=== PATIENT | female | born 1980 | race Caucasian/White ===

== ENCOUNTER 2016-08-24 20:58 | Emergency (ER) | payer OTHER ==
[2016-08-24 21:11] VITALS: TEMP 97.2
[2016-08-24] MEDS ORDERED: LORazepam 1 MG TAB PO STA (21:51)
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
[2016-08-24 22:24] VITALS: BP 145/75; PULSE 86; RESP 18
== END 2016-08-24 22:23 | disposition home or self-care (01) ==
LOC: EC 20:58
DX: S00.93XA Contusion of unspecified part of head, initial encounter (principal); F41.9 Anxiety disorder, unspecified; J45.909 Unspecified asthma, uncomplicated; F31.9 Bipolar disorder, unspecified; F43.10 Post-traumatic stress disorder, unspecified; F17.200 Nicotine dependence, unspecified, uncomplicated; Z79.899 Other long term (current) drug therapy; Z88.5 Allergy status to narcotic agent; W19.XXXA Unspecified fall, initial encounter; Y92.009 Unspecified place in unspecified non-institutional (private) residence as the place of occurrence of the external cause
CPT/HCPCS: 99284

== ENCOUNTER 2017-01-08 21:27 | Emergency (ER) | payer OTHER ==
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
[2017-01-08 22:48] VITALS: BP 134/86; PULSE 97; RESP 18; TEMP 99
== END 2017-01-08 22:46 | disposition home or self-care (01) ==
LOC: EC 21:27
DX: T76.21XA Adult sexual abuse, suspected, initial encounter (principal); F31.9 Bipolar disorder, unspecified; F41.9 Anxiety disorder, unspecified; F17.200 Nicotine dependence, unspecified, uncomplicated; Z79.899 Other long term (current) drug therapy; Z88.5 Allergy status to narcotic agent; Y92.89 Other specified places as the place of occurrence of the external cause
CPT/HCPCS: 99285

== ENCOUNTER 2017-07-16 14:07 | Emergency (ER) | payer OTHER ==
[2017-07-16 14:32] VITALS: BP 123/84; PULSE 83; RESP 17; TEMP 98.4
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
[2017-07-16] MEDS ORDERED: HYDROcodone/APAP 5-325MG 1 EACH TAB PO STA (15:35)
== END 2017-07-16 15:46 | disposition home or self-care (01) ==
LOC: EC 14:07
DX: S52.121A Displaced fracture of head of right radius, initial encounter for closed fracture (principal); F31.9 Bipolar disorder, unspecified; F41.9 Anxiety disorder, unspecified; F43.10 Post-traumatic stress disorder, unspecified; F17.200 Nicotine dependence, unspecified, uncomplicated; Z79.899 Other long term (current) drug therapy; Z88.5 Allergy status to narcotic agent; V04 Pedestrian injured in collision with heavy transport vehicle or bus; Y92.410 Unspecified street and highway as the place of occurrence of the external cause
CPT/HCPCS: 29105; 99283

== ENCOUNTER 2017-12-07 18:32 | Emergency (ER) | payer OTHER ==
[2017-12-07 18:41] VITALS: BP 148/78; PULSE 88; RESP 20; TEMP 97.8
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
--- NOTE | 2017-12-07 19:56 | XR ---
Right wrist HISTORY: Trauma and pain 4 views of the right wrist Bone mineralization, joint spaces and alignment are maintained. IMPRESSION: No acute fracture or dislocation.
--- NOTE | 2017-12-07 19:57 | XR ---
Right hand HISTORY: Trauma and pain 3 views of the right hand Bone mineralization, joint spaces and alignment are maintained. IMPRESSION: No fracture or dislocation.
--- NOTE | 2017-12-07 19:58 | XR ---
Right elbow HISTORY: Trauma and pain 3 views of the right elbow Radial head fracture is noted with minimal displacement. No dislocation. There is an elbow joint effu ericka. IMPRESSION: Radial head fracture
[2017-12-07] MEDS ORDERED: traMADol 50 MG TAB PO STA (20:04)
== END 2017-12-07 20:30 | disposition home or self-care (01) ==
LOC: EC 18:32
DX: S52.121A Displaced fracture of head of right radius, initial encounter for closed fracture (principal); F31.9 Bipolar disorder, unspecified; F43.10 Post-traumatic stress disorder, unspecified; F41.9 Anxiety disorder, unspecified; F17.200 Nicotine dependence, unspecified, uncomplicated; Z88.5 Allergy status to narcotic agent; Z79.899 Other long term (current) drug therapy; W23.0XXA Caught, crushed, jammed, or pinched between moving objects, initial encounter; Y93.E9 Activity, other interior property and clothing maintenance; Y92.009 Unspecified place in unspecified non-institutional (private) residence as the place of occurrence of the external cause
CPT/HCPCS: 99283

== ENCOUNTER 2018-10-06 12:24 | Emergency (ER) | payer OTHER ==
[2018-10-06 13:16] VITALS: RESP 18; TEMP 98.1
[2018-10-06] MEDS ORDERED: HYDROcodone/APAP 5-325MG 1 EACH TAB PO STA (13:30)
--- NOTE | 2018-10-06 14:00 | XR ---
EXAMINATION TYPE: XR knee 4V RT DATE OF EXAM: 10/06/2018 CLINICAL HISTORY: pain TECHNIQUE: 4 views of the right knee are obtained. COMPARISON: None. FINDINGS: There is no acute fracture/dislocation. The tri-compartment joint spaces appear within no rmal limits. The overlying soft tissue appears unremarkable. IMPRESSION: There is no acute fracture or dislocation.ICD 10 NO FRACTURE, INITIAL EVALUATION
--- NOTE | 2018-10-06 14:00 | XR ---
EXAMINATION TYPE: XR foot complete RT DATE OF EXAM: 10/06/2018 CLINICAL HISTORY: pain TECHNIQUE: Frontal, lateral and oblique images of the right foot are obtained. COMPARISON: None. FINDINGS: There is no acute fracture/dislocation evident. The joint spaces appear within normal adan its. The overlying soft tissue appears unremarkable. IMPRESSION: There is no acute fracture or dislocation. ICD 10 NO FRACTURE, INITIAL EVALUATION
--- NOTE | 2018-10-06 14:27 | ED ---
Lower Extremity Injury HPI - General Chief Complaint: Extremity Injury, Lower Stated Complaint: Fall, leg and foot injury Time Seen by Provider: 10/06/18 13:11 Source: patient, RN notes reviewed Mode of arrival: wheelchair Limitations: no limitations - History of Present Illness Initial Comments: This a 38-year-old female presents emergency Department chief complaint trip and fall. Patient states that her sandal caught on concrete and she fell forward onto her knee, right foot region. Patient complains of right foot pain and right knee pain. She does have multiple abrasions so she states her tetanus is up-to-date. She denies any head injury no loss conscious. Patient states she had a prior foot fracture. Patient states it's orals and region. - Related Data Home Medications Medication Instructions Recorded Confirmed DULoxetine HCL [Cymbalta] 60 mg PO DAILY 08/23/15 10/06/18 Allergies Allergy/AdvReac Type Severity Reaction Status Date / Time codeine AdvReac Nausea & Verified 10/06/18 14:14 Vomiting Review of Systems ROS Statement: Those systems with pertinent positive or pertinent negative responses have been documented in the HPI. ROS Other: All systems not noted in ROS Statement are negative. Past Medical History Past Medical History: Asthma Additional Past Medical History / Comment(s): OB history: 3 Vaginal deliveries, 2 voluntary terminations. History of Any Multi-Drug Resistant Organisms: None Reported Past Surgical History: Tubal Ligation Additional Past Surgical History / Comment(s): colonoscopy. corrective eye surgery as child. D&C x2 Past Psychological History: Anxiety, Bipolar, Depression, PTSD Smoking Status: Current every day smoker Past Alcohol Use History: Occasional Past Drug Use History: None Reported General Exam Limitations: no limitations General appearance: alert, in no apparent distress Eye exam: Present: normal appearance, PERRL, EOMI. Absent: scleral icterus, conjunctival injection, periorbital swelling ENT exam: Present: normal exam, normal oropharynx, mucous membranes moist Neck exam: Present: normal inspection, full ROM. Absent: tenderness, meningismus, lymphadenopathy Respiratory exam: Present: normal lung sounds bilaterally. Absent: respiratory distress, wheezes, rales, rhonchi, stridor Cardiovascular Exam: Present: regular rate, normal rhythm, normal heart sounds. Absent: systolic murmur, diastolic murmur, rubs, gallop, clicks Extremities exam: Present: other (Right knee there is abrasion on anterior surface, test with palpation of the patella, full range of motion neurovascular intact right hip full range of motion nontender, right foot tenderness over the fifth digit. There are slight abrasions no ankle tenderness. Left knee small abrasion full range of motion extremity exam otherwise unremarkable) Back exam: Present: full ROM. Absent: tenderness, paraspinal tenderness, vertebral tenderness Neurological exam: Present: alert, oriented X3, CN II-XII intact Course Vital Signs 10/06/18 13:11 Temperature 98.1 F Pulse Rate 77 Respiratory 18 Rate Blood Pressure 122/89 O2 Sat by Pulse 98 Oximetry Medical Decision Making - Medical Decision Making 38-year-old female presented for a fall, right and left leg injury. X-rays obtained no acute fracture. There is evidence of OLD fracture and which she knew about. Disposition Clinical Impression: Fall, Abrasion of knee, right, Contusion of right foot, Contusion of right knee Disposition: HOME SELF-CARE Condition: Stable Instructions (If sedation given, give patient instructions): Knee Pain (ED), Abrasion (ED) Additional Instructions: Please return to the Emergency Department if symptoms worsen or any other concerns. Is patient prescribed a controlled substance at d/c from ED?: No Referrals: Deonte Espana DO [Primary Care Provider] - 1-2 days
[2018-10-06] MEDS ORDERED: traMADol 50 MG STARTER PACK 3 TAB BTL PO STA (14:29)
[2018-10-06 14:56] VITALS: BP 123/71; PULSE 82
== END 2018-10-06 15:00 | disposition home or self-care (01) ==
LOC: EC 12:24
DX: S80.01XA Contusion of right knee, initial encounter (principal); S90.31XA Contusion of right foot, initial encounter; F41.9 Anxiety disorder, unspecified; F31.9 Bipolar disorder, unspecified; F17.200 Nicotine dependence, unspecified, uncomplicated; Z79.899 Other long term (current) drug therapy; Z88.5 Allergy status to narcotic agent; W01.0XXA Fall on same level from slipping, tripping and stumbling without subsequent striking against object, initial encounter; Y93.01 Activity, walking, marching and hiking
CPT/HCPCS: 99283

== ENCOUNTER 2018-10-25 17:37 | Emergency (ER) | payer OTHER ==
[2018-10-25 18:05] VITALS: RESP 18
[2018-10-25] MEDS ORDERED: KETOROLAC 60 MG/2 ML VIAL IM STA (18:29)
[2018-10-25] MEDS ORDERED: HYDROcodone/APAP 5-325MG 1 EACH TAB PO STA (18:38)
--- NOTE | 2018-10-25 18:38 | XR ---
PROCEDURE: XR cervical spine comp - 5V DATE AND TIME: 10/25/2018 6:27 PM CLINICAL INDICATION: PHH; pain TECHNIQUE: Department protocol COMPARISON: None FINDINGS: There is no fracture or malalignment. The soft tissues are unremarkable. IMPRESSION: NO ACUTE PROCESS.
--- NOTE | 2018-10-25 18:39 | XR ---
PROCEDURE: XR shoulder complete RT - 3V DATE AND TIME: 10/25/2018 6:27 PM CLINICAL INDICATION: PHH; Pain TECHNIQUE: Department protocol COMPARISON: None FINDINGS: There is no fracture or malalignment. The soft tissues are unremarkable. IMPRESSION: NO ACUTE PROCESS.
--- NOTE | 2018-10-25 18:40 | XR ---
PROCEDURE: XR scapula RT - 2V DATE AND TIME: 10/25/2018 6:27 PM CLINICAL INDICATION: PHH; Pain TECHNIQUE: Department protocol COMPARISON: None FINDINGS: There is no fracture or malalignment. The soft tissues are unremarkable. IMPRESSION: NO ACUTE PROCESS.
--- NOTE | 2018-10-25 19:04 | ED ---
General Adult HPI - General Chief complaint: Extremity Injury, Upper Stated complaint: Arm injury Time Seen by Provider: 10/25/18 17:46 Source: patient, family, RN notes reviewed, old records reviewed Mode of arrival: ambulatory Limitations: no limitations - History of Present Illness Initial comments: 38-year-old female patient with no pertinent past multiple history presents to ED with right shoulder injury. Patient reports that she was unpacking boxes from a closet when a box fell and hit her in the right shoulder. Patient also reports that a framed re fell and hit her in her posterior right scapular region. This picture also grazed her posterior cervical spine region. She denies any trauma to head. Patient primary complaint is shoulder pain.. Patient states that she is not . Patient denies any other complaints. Systemic: Pt denies fatigue, myalgia, fever/chills, rash. Pt denies weakness, night sweats, weight loss. Neuro: Pt denies headache, visual disturbances, syncope or pre-syncope. HEENT: Pt denies ocular discharge or irritation, otalgia, rhinorrhea, pharyngitis or notable lymphadenopathy. Cardiopulmonary: Pt denies chest pain, SOB, heart palpitations, dyspnea on exertion. Abdominal/GI: Pt denies abdominal pain, n/v/d. : Pt denies dysuria, burning w/ urination, frequency/urgency. Denies new onset urinary or bowel incontinence. MSK: Pt denies myalgia, loss of strength or function in extremities. Neuro: Pt denies new onset weakness, paresthesias. - Related Data Home Medications Medication Instructions Recorded Confirmed Topiramate [Topamax] 25 mg PO BID 10/25/18 10/25/18 Allergies Allergy/AdvReac Type Severity Reaction Status Date / Time codeine AdvReac Nausea & Verified 10/06/18 14:14 Vomiting Review of Systems ROS Statement: Those systems with pertinent positive or pertinent negative responses have been documented in the HPI. ROS Other: All systems not noted in ROS Statement are negative. Past Medical History Past Medical History: Asthma Additional Past Medical History / Comment(s): OB history: 3 Vaginal deliveries, 2 voluntary terminations. History of Any Multi-Drug Resistant Organisms: None Reported Past Surgical History: Tubal Ligation Additional Past Surgical History / Comment(s): colonoscopy. corrective eye surgery as child. D&C x2 Past Psychological History: Anxiety, Bipolar, Depression, PTSD Smoking Status: Current every day smoker Past Alcohol Use History: Occasional Past Drug Use History: None Reported General Exam - General Exam Comments Initial Comments: Constitutional: NAD, AOX3, Pt has pleasant affect. HEENT: NC/AT, trachea midline, neck supple, no lymphadenopathy. Posterior pharynx non erythematous, without exudates. External ears appear normal, without discharge. Mucous membranes moist. Eyes PERRLA, EOM intact. There is no scleral icterus. No pallor noted. Cardiopulmonary: RRR, no murmurs, rubs or gallops, no JVD noted. Lungs CTAB in anterior and posterior mcgregor. No peripheral edema. Abdominal exam: Abdomen soft and non-distended. Abdomen non-tender to palpation in all 4 quadrants. Bowel sounds active in LLQ. No hepatosplenomegaly. No ecchymosis Neuro: CN II-XII intact. No nuchal rigidity. MSK: Right shoulder mildly tender to palpation. Active motion limited secondary to pain. No ecchymoses. No deformity. Mild amount of cervical spinal tenderness at the location of trauma no other area tenderness. Full active range of motion. No posterior calf tenderness bilaterally, homans sign negative bilaterally. Posterior tibialis and radial pulse +2 bilaterally. Sensation intact in upper and lower extremities. Pt ambulatory without difficulty. Limitations: no limitations Course Vital Signs 10/25/18 17:46 Temperature 97.7 F Pulse Rate 78 Respiratory 18 Rate Blood Pressure 155/91 O2 Sat by Pulse 99 Oximetry Medical Decision Making - Medical Decision Making 38-year-old female patient with no pertinent past multiple history presents to ED with right shoulder injury. Patient reports that she was unpacking boxes from a closet when a box fell and hit her in the right shoulder. Patient also reports that a framed re fell and hit her in her posterior right scapular region. This picture also grazed her posterior cervical spine region. She denies any trauma to head. Patient primary complaint is shoulder pain.. Patient states that she is not . Patient denies any other complaints. Pt VSS, afebrile. Physical exam displayed: Right shoulder mildly tender to palpation. Active motion limited secondary to pain. No ecchymoses. No deformity. Mild amount of cervical spinal tenderness at the location of trauma no other area tenderness. Full active range of motion. Plain film of shoulder, scapula, cervical spine not displaying acute process. Patient likely suffered a shoulder sprain. Patient will be given orthopedic follow-up. Patient will be advised to use Tylenol and Motrin for pain. Patient return to ER if conditions worsen anyway. Case d iscussed with Dr. Alonso. Disposition Clinical Impression: Shoulder sprain Disposition: HOME SELF-CARE Condition: Stable Instructions (If sedation given, give patient instructions): Shoulder Sprain (ED) Additional Instructions: Patient to adhere to previously discussed treatment plan and will take medication(s) as directed. Patient to follow up with PCP in 1-2 days. Patient to return to ED if symptoms do not improve. Use tylenol and motrin for pain / inflammation. Follow up with orthopedic surgeon in 1-2 days. Is patient prescribed a controlled substance at d/c from ED?: No Referrals: Deonte Espana DO [Primary Care Provider] - 1-2 days Ehsan Clark MD [STAFF PHYSICIAN] - 1-2 days
[2018-10-25 19:14] VITALS: BP 128/89; PULSE 89; TEMP 97.9
== END 2018-10-25 19:14 | disposition home or self-care (01) ==
LOC: EC 17:37
DX: S43.401A Unspecified sprain of right shoulder joint, initial encounter (principal); F17.200 Nicotine dependence, unspecified, uncomplicated; Z88.5 Allergy status to narcotic agent; Z79.899 Other long term (current) drug therapy; Z53.8 Procedure and treatment not carried out for other reasons; W20.8XXA Other cause of strike by thrown, projected or falling object, initial encounter; Y93.89 Activity, other specified
CPT/HCPCS: 72050; 99284

== ENCOUNTER 2019-01-28 12:34 | Emergency (ER) | payer BC, OTHER ==
[2019-01-28 12:42] VITALS: RESP 18
[2019-01-28] MEDS ORDERED: SODIUM CHLORIDE 0.9% 1,000 ML IV STA (12:46)
[2019-01-28] MEDS ORDERED: ONDANSETRON 4 MG/2 ML VIAL IVP STA (12:46)
[2019-01-28] MEDS ORDERED: MORPHINE SULFATE 4 MG/ML SYRINGE IV STA (12:57)
[2019-01-28 13:20] LABS: Basophils % (A) 1 %; Eosinophils # (A) 0.1 k/uL (0-0.7); Eosinophils % (A) 2 %; HCT 40.4 % (34.0-46.0); HGB 13.4 gm/dL (11.4-16.0); Lymphocytes # (A) 1.8 k/uL (1.0-4.8); Lymphocytes % (A) 34 %; MCH 30.2 pg (25.0-35.0); MCHC 33.3 g/dL (31.0-37.0); MCV 90.7 fL (80.0-100.0); Mean Platelet Volume 7.9; Monocytes # (A) 0.2 k/uL (0-1.0); Monocytes % (A) 5 %; Neutrophils % (A) 57 %; Platelet Count 163 k/uL (150-450); RBC 4.45 m/uL (3.80-5.40); WBC 5.2 k/uL (3.8-10.6)
[2019-01-28 13:21] LABS: Appearance,Urine Clear (Clear); Bilirubin,Urine Negative (Negative); Blood,Urine Negative (Negative); Color,Urine Colorless; Glucose,Urine (UA) Negative (Negative); Ketones,Urine Negative (Negative); Leukocyte Esterase,Urine Negative (Negative); Nitrite,Urine Negative (Negative); Protein,Urine Negative (Negative); Specific Gravity,Urine 1.001 (1.001-1.035); Urobilinogen,Urine <2.0 mg/dL (<2.0)
[2019-01-28 13:29] LABS: ALT 23 U/L (9-52); AST 19 U/L (14-36); African American GFR (CKD) >90 (>60 ml/min/1.73 sqM); Albumin 3.8 g/dL (3.5-5.0); Alkaline Phosphatase 74 U/L (38-126); Anion Gap 9 mmol/L; Blood Urea Nitrogen 8 mg/dL (7-17); Calcium 9.2 mg/dL (8.4-10.2); Carbon Dioxide 19 mmol/L (22-30); Chloride 109 mmol/L (98-107); Glucose 93 mg/dL (74-99); Lipase 37 U/L (23-300); Potassium 4.1 mmol/L (3.5-5.1); Sodium 137 mmol/L (137-145); Total Bilirubin 0.3 mg/dL (0.2-1.3); Total Protein 6.7 g/dL (6.3-8.2)
--- NOTE | 2019-01-28 14:33 | US ---
EXAMINATION TYPE: US gallbladder DATE OF EXAM: 01/28/2019 COMPARISON: NONE CLINICAL HISTORY: Pain. EXAM MEASUREMENTS: Liver Length: 14.0 cm Gallbladder Wall: 0.2 cm CBD: 0.4 cm Right Kidney: 10.7 x 3.9 x 4.9 cm Pancreas: Tail obscured by overlying bowel gas, duct measured at 2mm Liver: wnl Gallbladder: wnl Evidence for sonographic Clark's sign: no CBD: wnl Right Kidney: wnl IMPRESSION: Negative exam. No gallstones or dilated ducts.
[2019-01-28] MEDS ORDERED: PANTOPRAZOLE 40 MG/10 ML VIAL IVP STA (14:39)
--- NOTE | 2019-01-28 16:04 | CT ---
EXAMINATION TYPE: CT abdomen pelvis w con DATE OF EXAM: 01/28/2019 COMPARISON: 11/08/2014 HISTORY: Nausea, vomiting and diarrhea with right lower quadrant pain. CT DLP: 1123.9 mGycm Automated exposure control for dose reduction was used. TECHNIQUE: Helical acquisition of images was performed from the lung bases through the pelvis. CONTRAST: Performed without Oral Contrast and with IV Contrast, patient injected with 100 mL of Isovue 300. FINDINGS: Lung bases are clear. There is no pleural effusion. Heart size is normal. There is no pericardial eff usion. Liver spleen pancreas gallbladder appear normal. Bile ducts are not dilated. There is no adrenal mass . Kidneys show satisfactory contrast opacification. There is no hydronephrosis. There is no retroperi toneal adenopathy. There is no inguinal hernia. There is no free fluid in the pelvis. Bladder distends smoothly. There i s no evidence of a pelvic mass. Uterus is retroverted. Lumbar spine is intact. Bony pelvis is intact. I see no bony destructive process. The appendix appears normal. There is no mesenteric edema. There is no ascites or free air. IMPRESSION: NEGATIVE CT SCAN ABDOMEN AND PELVIS. NO ADVERSE CHANGE COMPARED TO OLD EXAM. NORMAL APPENDIX.
--- NOTE | 2019-01-28 16:10 | ED ---
General Adult HPI - General Chief complaint: Abdominal Pain Stated complaint: RT side flank pain Time Seen by Provider: 01/28/19 12:46 Source: patient, RN notes reviewed, old records reviewed Mode of arrival: ambulatory Limitations: no limitations - History of Present Illness Initial comments: 38-year-old female patient past history of tubal ligation presents to ED with chief complaint of right upper quadrant, epigastric abdominal pain. Patient works as been ongoing for 5 days. Patient reports associated nausea and vomiting. Patient denies any other complaints. Denies any chest pain shortness of breath. Systemic: Pt denies fatigue, fever/chills, rash. Pt denies weakness, night sweats, weight loss. Neuro: Pt denies headache, visual disturbances, syncope or pre-syncope. HEENT: Pt denies ocular discharge or irritation, otalgia, rhinorrhea, pha ryngitis or notable lymphadenopathy. Cardiopulmonary: Pt denies chest pain, SOB, heart palpitations, dyspnea on exertion. : Pt denies dysuria, burning w/ urination, frequency/urgency. Denies new onset urinary or bowel incontinence. MSK: Pt denies myalgia, loss of strength or function in extremities. Neuro: Pt denies new onset weakness, paresthesias. - Related Data Home Medications Medication Instructions Recorded Confirmed Topiramate [Topamax] 25 mg PO BID 10/25/18 10/25/18 Previous Rx's Medication Instructions Recorded Pantoprazole Sodium [Protonix] 20 mg PO Q24HR 7 Days #7 tablet. 01/28/19 Allergies Allergy/AdvReac Type Severity Reaction Status Date / Time codeine AdvReac Nausea & Verified 01/28/19 12:40 Vomiting Review of Systems ROS Statement: Those systems with pertinent positive or pertinent negative responses have been documented in the HPI. ROS Other: All systems not noted in ROS Statement are negative. Past Medical History Past Medical History: Asthma Additional Past Medical History / Comment(s): OB history: 3 Vaginal deliveries, 2 voluntary terminations. History of Any Multi-Drug Resistant Organisms: None Reported Past Surgical History: Tubal Ligation Additional Past Surgical History / Comment(s): colonoscopy. corrective eye surgery as child. D&C x2 Past Psychological History: Anxiety, Bipolar, Depression, PTSD Smoking Status: Current every day smoker Past Alcohol Use History: Occasional Past Drug Use History: None Reported General Exam - General Exam Comments Initial Comments: Constitutional: NAD, AOX3, Pt has pleasant affect. HEENT: NC/AT, trachea midline, neck supple, no lymphadenopathy. Posterior pharynx non erythematous, without exudates. External ears appear normal, without discharge. Mucous membranes moist. Eyes PERRLA, EOM intact. There is no scleral icterus. No pallor noted. Cardiopulmonary: RRR, no murmurs, rubs or gallops, no JVD noted. Lungs CTAB in anterior and posterior mcgregor. No peripheral edema. Abdominal exam: Abdomen soft and non-distended. Abdomen mildly tender to palpation and epigastric, right upper quadrant region. Clark sign negative. No other areas of abdominal tenderness, no guarding no JVD.. Bowel sounds active in LLQ. No hepatosplenomegaly. No ecchymosis Neuro: CN II-XII grossly intact. No nuchal rigidity. No raccon eyes, no olivares sign, no hemotympanum. No cervical spinal tenderness. MSK: No posterior calf tenderness bilaterally, homans sign negative bilaterally. Posterior tibialis and radial pulse +2 bilaterally. Sensation intact in upper and lower extremities. Full active ROM in upper and lower extremities, 5/5 stregnth. Limitations: no limitations Course Vital Signs 01/28/19 01/28/19 12:40 15:04 Temperature 98.9 F Pulse Rate 95 70 Respiratory 18 18 Rate Blood Pressure 129/88 128/89 O2 Sat by Pulse 97 97 Oximetry Medical Decision Making - Medical Decision Making 38-year-old female patient past history of tubal ligation presents to ED with chief complaint of right upper quadrant, epigastric abdominal pain. Patient works as been ongoing for 5 days. Patient reports associated nausea and vomiting. Patient denies any other complaints. Denies any chest pain shortness of breath. Pt VSS, afebrile. Physical exam displayed: Abdomen mildly tender to palpation and epigastric, right upper quadrant region. Clark sign negative. No other areas of abdominal tenderness, no guarding no JVD.. Laboratory investigations revealed non-impressive CBC, CMP, UA. Lactic acid 0.6. Ultrasound gallbladder, CTM pelvis did not display acute process. Patient improved with Protonix. Patient will be discharged with Protonix. Patient to follow up with primary care provider and GI consult. Will turn your condition worsens. Case discussed with Dr. Molina. - Lab Data Result diagrams: 01/28/19 13:10 01/28/19 13:10 Lab Results 01/28/19 01/28/19 01/28/19 Range/Units 13:10 13:10 13:10 WBC 5.2 (3.8-10.6) k/uL RBC 4.45 (3.80-5.40) m/uL Hgb 13.4 (11.4-16.0) gm/dL Hct 40.4 (34.0-46.0) % MCV 90.7 (80.0-100.0) fL MCH 30.2 (25.0-35.0) pg MCHC 33.3 (31.0-37.0) g/dL RDW 13.0 (11.5-15.5) % Plt Count 163 (150-450) k/uL Neutrophils % 57 % Lymphocytes % 34 % Monocytes % 5 % Eosinophils % 2 % Basophils % 1 % Neutrophils # 3.0 (1.3-7.7) k/uL Lymphocytes # 1.8 (1.0-4.8) k/uL Monocytes # 0.2 (0-1.0) k/uL Eosinophils # 0.1 (0-0.7) k/uL Basophils # 0.0 (0-0.2) k/uL Sodium 137 (137-145) mmol/L Potassium 4.1 (3.5-5.1) mmol/L Chloride 109 H (98-107) mmol/L Carbon Dioxide 19 L (22-30) mmol/L Anion Gap 9 mmol/L BUN 8 (7-17) mg/dL Creatinine 0.60 (0.52-1.04) mg/dL Est GFR (CKD-EPI)AfAm >90 (>60 ml/min/1.73 sqM) Est GFR (CKD-EPI)NonAf >90 (>60 ml/min/1.73 sqM) Glucose 93 (74-99) mg/dL Plasma Lactic Acid Robson (0.7-2.0) mmol/L Calcium 9.2 (8.4-10.2) mg/dL Total Bilirubin 0.3 (0.2-1.3) mg/dL AST 19 (14-36) U/L ALT 23 (9-52) U/L Alkaline Phosphatase 74 (38-126) U/L Total Protein 6.7 (6.3-8.2) g/dL Albumin 3.8 (3.5-5.0) g/dL Lipase 37 (23-300) U/L Urine Color Urine Appearance (Clear) Urine pH (5.0-8.0) Ur Specific [place] (1.001-1.035) Urine Protein (Negative) Urine Glucose (UA) (Negative) Urine Ketones (Negative) Urine Blood (Negative) Urine Nitrite (Negative) Urine Bilirubin (Negative) Urine Urobilinogen (<2.0) mg/dL Ur Leukocyte Esterase (Negative) Urine HCG, Qual Not Detected (Not Detectd) 01/28/19 01/28/19 Range/Units 13:10 14:32 WBC (3.8-10.6) k/uL RBC (3.80-5.40) m/uL Hgb (11.4-16.0) gm/dL Hct (34.0-46.0) % MCV (80.0-100.0) fL MCH (25.0-35.0) pg MCHC (31.0-37.0) g/dL RDW (11.5-15.5) % Plt Count (150-450) k/uL Neutrophils % % Lymphocytes % % Monocytes % % Eosinophils % % Basophils % % Neutrophils # (1.3-7.7) k/uL Lymphocytes # (1.0-4.8) k/uL Monocytes # (0-1.0) k/uL Eosinophils # (0-0.7) k/uL Basophils # (0-0.2) k/uL Sodium (137-145) mmol/L Potassium (3.5-5.1) mmol/L Chloride (98-107) mmol/L Carbon Dioxide (22-30) mmol/L Anion Gap mmol/L BUN (7-17) mg/dL Creatinine (0.52-1.04) mg/dL Est GFR (CKD-EPI)AfAm (>60 ml/min/1.73 sqM) Est GFR (CKD-EPI)NonAf (>60 ml/min/1.73 sqM) Glucose (74-99) mg/dL Plasma Lactic Acid Robson 0.6 L (0.7-2.0) mmol/L Calcium (8.4-10.2) mg/dL Total Bilirubin (0.2-1.3) mg/dL AST (14-36) U/L ALT (9-52) U/L Alkaline Phosphatase (38-126) U/L Total Protein (6.3-8.2) g/dL Albumin (3.5-5.0) g/dL Lipase (23-300) U/L Urine Color Colorless Urine Appearance Clear (Clear) Urine pH 7.0 (5.0-8.0) Ur Specific [place] 1.001 (1.001-1.035) Urine Protein Negative (Negative) Urine Glucose (UA) Negative (Negative) Urine Ketones Negative (Negative) Urine Blood Negative (Negative) Urine Nitrite Negative (Negative) Urine Bilirubin Negative (Negative) Urine Urobilinogen <2.0 (<2.0) mg/dL Ur Leukocyte Esterase Negative (Negative) Urine HCG, Qual (Not Detectd) Disposition Clinical Impression: Gastritis, Abdominal pain Disposition: HOME SELF-CARE Condition: Stable Instructions (If sedation given, give patient instructions): Abdominal Pain (ED) Additional Instructions: Patient to adhere to previously discussed treatment plan and will take medication(s) as directed. Patient to follow up with PCP in 1-2 days. Patient to return to ED if symptoms do not improve. Follow-up with primary care provider and GI consult 1-2 days. Return to ER if condition worsens. Prescriptions: Pantoprazole Sodium [Protonix] 20 mg PO Q24HR 7 Days #7 tablet.dr Is patient prescribed a controlled substance at d/c from ED?: No Referrals: Indira Angelo MD [Primary Care Provider] - 1-2 days Addison Carty MD [STAFF PHYSICIAN] - 1-2 days
[2019-01-28 16:31] VITALS: BP 112/78; PULSE 65; TEMP 98.4
== END 2019-01-28 16:30 | disposition home or self-care (01) ==
LOC: EC 12:34
DX: K29.70 Gastritis, unspecified, without bleeding (principal); F17.200 Nicotine dependence, unspecified, uncomplicated; Z79.899 Other long term (current) drug therapy; Z88.5 Allergy status to narcotic agent; Z98.51 Tubal ligation status
CPT/HCPCS: 36415; 80053; 83605; 83690; 85025; 81003; 81025; 76705; 74177; 99284; 96374; 96375 ×2; 96361 ×2; J2270; J2405; C9113; Q9967

== ENCOUNTER 2019-04-03 08:33 | Emergency (ER) | payer OTHER ==
[2019-04-03] MEDS ORDERED: KETOROLAC 30 MG/ML 1 ML VIAL IVP STA (09:12)
[2019-04-03] MEDS ORDERED: ONDANSETRON 4 MG/2 ML VIAL IVP STA (09:12)
[2019-04-03] MEDS ORDERED: SODIUM CHLORIDE 0.9% 1,000 ML IV STA ×2 (09:12)
[2019-04-03] MEDS ORDERED: MORPHINE SULFATE 4 MG/ML SYRINGE IV STA (09:12)
--- NOTE | 2019-04-03 09:20 | ED ---
Back Pain HPI - General Chief Complaint: Back Pain/Injury Stated Complaint: low back pain, nausea Time Seen by Provider: 04/03/19 08:41 Source: patient, RN notes reviewed, old records reviewed Limitations: no limitations - History of Present Illness Initial Comments: Patient is a 38-year-old female presents for a sore today with chief complaint of right-sided lower back pain that started on the right approximate 5 days ago. Patient reports that the pain seems to be progressively worse now radiates towards the front of her abdomen. She reports pain draining towards the left side of her back. Patient reports that she initially thought this was related to a back spasm and not seems deeper than just muscle pain. Patient states that she has had episodes of nausea but no specific vomiting. She reports she's had normal stools. She states that she feels that she has to force herself to urinate but denies any bloody urine. - Related Data Home Medications Medication Instructions Recorded Confirmed Acetaminophen [Tylenol Arthritis] 650 mg PO Q12H PRN 04/03/19 04/03/19 Ibuprofen [Motrin] 800 mg PO Q6H PRN 04/03/19 04/03/19 Previous Rx's Medication Instructions Recorded Nitrofurantoin Monohyd/M-Cryst 100 mg PO Q12HR #14 cap 04/03/19 [Macrobid] Allergies Allergy/AdvReac Type Severity Reaction Status Date / Time codeine AdvReac Nausea & Verified 04/03/19 08:54 Vomiting Review of Systems ROS Statement: Those systems with pertinent positive or pertinent negative responses have been documented in the HPI. ROS Other: All systems not noted in ROS Statement are negative. Past Medical History Past Medical History: Asthma Additional Past Medical History / Comment(s): OB history: 3 Vaginal deliveries, 2 voluntary terminations. History of Any Multi-Drug Resistant Organisms: None Reported Past Surgical History: Tubal Ligation Additional Past Surgical History / Comment(s): colonoscopy. corrective eye surgery as child. D&C x2 Past Psychological History: Anxiety, Bipolar, Depression, PTSD Smoking Status: Current every day smoker Past Alcohol Use History: Occasional Past Drug Use History: None Reported General Exam Limitations: no limitations General appearance: alert, in no apparent distress Head exam: Present: atraumatic, normocephalic, normal inspection Eye exam: Present: normal appearance ENT exam: Present: normal exam Neck exam: Present: normal inspection. Absent: tenderness, meningismus, lymphadenopathy Respiratory exam: Present: normal lung sounds bilaterally. Absent: respiratory distress, wheezes, rales, rhonchi, stridor Cardiovascular Exam: Present: regular rate, normal rhythm, normal heart sounds. Absent: systolic murmur, diastolic murmur, rubs, gallop, clicks GI/Abdominal exam: Present: soft, normal bowel sounds. Absent: distended, tenderness, guarding, rebound, rigid Extremities exam: Present: normal inspection, full ROM, normal capillary refill. Absent: tenderness, pedal edema, joint swelling, calf tenderness Back exam: Present: normal inspection Neurological exam: Present: alert, oriented X3, CN II-XII intact Psychiatric exam: Present: normal affect, normal mood Course Vital Signs 04/03/19 08:35 Temperature 98.5 F Pulse Rate 105 H Respiratory 17 Rate Blood Pressure 128/70 O2 Sat by Pulse 97 Oximetry Medical Decision Making - Medical Decision Making Patient is a 38-year-old female presents pressure today was 2. right-sided back pain and lower abdominal pain onset for 5 days. She has no fever at this time. She did have an episode of vomiting. At this time patient's no some minimal tenderness, and did have some right-sided CVA tenderness. Lab work was reviewed. She did have a minor bacteria in her urine sample. Blood work was otherwise unremarkable. Due to the tenderness CT and pelvis was completed. There is evidence of a small 1.5 cm right ovarian cyst. Discussed unlikely significant source patient's pain. At this time we will culture the urine and put the Patient on a short course of antibiotics to cover for urinary tract infection complains some mild dysuria. I discussed the Patient can follow-up with her primary care doctor. She states she heard a scheduled appointment within the next 1-2 days. Discussed treatment any other further complaints to return for evaluation. On multiple questioning Patient denies any vaginal discharge or any concern for STDs. - Lab Data Result diagrams: 04/03/19 09:44 04/03/19 09:44 Lab Results 04/03/19 04/03/19 04/03/19 Range/Units 09:44 09:44 09:44 WBC 5.1 (3.8-10.6) k/uL RBC 4.72 (3.80-5.40) m/uL Hgb 14.8 (11.4-16.0) gm/dL Hct 43.2 (34.0-46.0) % MCV 91.6 (80.0-100.0) fL MCH 31.3 (25.0-35.0) pg MCHC 34.2 (31.0-37.0) g/dL RDW 14.9 (11.5-15.5) % Plt Count 172 (150-450) k/uL Neutrophils % 64 % Lymphocytes % 27 % Monocytes % 6 % Eosinophils % 2 % Basophils % 0 % Neutrophils # 3.2 (1.3-7.7) k/uL Lymphocytes # 1.3 (1.0-4.8) k/uL Monocytes # 0.3 (0-1.0) k/uL Eosinophils # 0.1 (0-0.7) k/uL Basophils # 0.0 (0-0.2) k/uL PT (9.0-12.0) sec INR (<1.2) APTT (22.0-30.0) sec Sodium 141 (137-145) mmol/L Potassium 4.5 (3.5-5.1) mmol/L Chloride 111 H (98-107) mmol/L Carbon Dioxide 22 (22-30) mmol/L Anion Gap 8 mmol/L BUN 10 (7-17) mg/dL Creatinine 0.63 (0.52-1.04) mg/dL Est GFR (CKD-EPI)AfAm >90 (>60 ml/min/1.73 sqM) Est GFR (CKD-EPI)NonAf >90 (>60 ml/min/1.73 sqM) Glucose 96 (74-99) mg/dL Plasma Lactic Acid Robson 0.8 (0.7-2.0) mmol/L Calcium 9.2 (8.4-10.2) mg/dL Total Bilirubin 0.3 (0.2-1.3) mg/dL AST 17 (14-36) U/L ALT 21 (9-52) U/L Alkaline Phosphatase 67 (38-126) U/L Total Protein 6.9 (6.3-8.2) g/dL Albumin 3.9 (3.5-5.0) g/dL Amylase 42 (30-110) U/L Lipase 52 (23-300) U/L Urine Color Urine Appearance (Clear) Urine pH (5.0-8.0) Ur Specific [place] (1.001-1.035) Urine Protein (Negative) Urine Glucose (UA) (Negative) Urine Ketones (Negative) Urine Blood (Negative) Urine Nitrite (Negative) Urine Bilirubin (Negative) Urine Urobilinogen (<2.0) mg/dL Ur Leukocyte Esterase (Negative) Urine RBC (0-5) /hpf Urine WBC (0-5) /hpf Ur Squamous Epith Cells (0-4) /hpf Urine Bacteria (None) /hpf Urine Mucus (None) /hpf 04/03/19 04/03/19 Range/Units 09:44 09:44 WBC (3.8-10.6) k/uL RBC (3.80-5.40) m/uL Hgb (11.4-16.0) gm/dL Hct (34.0-46.0) % MCV (80.0-100.0) fL MCH (25.0-35.0) pg MCHC (31.0-37.0) g/dL RDW (11.5-15.5) % Plt Count (150-450) k/uL Neutrophils % % Lymphocytes % % Monocytes % % Eosinophils % % Basophils % % Neutrophils # (1.3-7.7) k/uL Lymphocytes # (1.0-4.8) k/uL Monocytes # (0-1.0) k/uL Eosinophils # (0-0.7) k/uL Basophils # (0-0.2) k/uL PT 9.4 (9.0-12.0) sec INR 0.9 (<1.2) APTT 23.2 (22.0-30.0) sec Sodium (137-145) mmol/L Potassium (3.5-5.1) mmol/L Chloride (98-107) mmol/L Carbon Dioxide (22-30) mmol/L Anion Gap mmol/L BUN (7-17) mg/dL Creatinine (0.52-1.04) mg/dL Est GFR (CKD-EPI)AfAm (>60 ml/min/1.73 sqM) Est GFR (CKD-EPI)NonAf (>60 ml/min/1.73 sqM) Glucose (74-99) mg/dL Plasma Lactic Acid Robson (0.7-2.0) mmol/L Calcium (8.4-10.2) mg/dL Total Bilirubin (0.2-1.3) mg/dL AST (14-36) U/L ALT (9-52) U/L Alkaline Phosphatase (38-126) U/L Total Protein (6.3-8.2) g/dL Albumin (3.5-5.0) g/dL Amylase (30-110) U/L Lipase (23-300) U/L Urine Color Light Yellow Urine Appearance Cloudy H (Clear) Urine pH 5.5 (5.0-8.0) Ur Specific [place] 1.012 (1.001-1.035) Urine Protein Negative (Negative) Urine Glucose (UA) Negative (Negative) Urine Ketones Negative (Negative) Urine Blood Negative (Negative) Urine Nitrite Negative (Negative) Urine Bilirubin Negative (Negative) Urine Urobilinogen <2.0 (<2.0) mg/dL Ur Leukocyte Esterase Negative (Negative) Urine RBC <1 (0-5) /hpf Urine WBC 1 (0-5) /hpf Ur Squamous Epith Cells 11 H (0-4) /hpf Urine Bacteria Rare H (None) /hpf Urine Mucus Rare H (None) /hpf - Radiology Data Radiology results: report reviewed CT abdomen and pelvis was read and negative for any acute process there is a 1.5 cm right ovarian cyst. Disposition Clinical Impression: Right ovarian cyst, UTI (urinary tract infection) Disposition: HOME SELF-CARE Condition: Good Instructions (If sedation given, give patient instructions): Urinary Tract Infection in Women (DC) Additional Instructions: Please use medication as discussed. Please follow up with family doctor if symptoms have not improved over the next two days. Please return to the emergency room if your symptoms increase or worsen or for any other concerns. Prescriptions: Nitrofurantoin Monohyd/M-Cryst [Macrobid] 100 mg PO Q12HR #14 cap Is patient prescribed a controlled substance at d/c from ED?: No Referrals: Indira Angelo MD [Primary Care Provider] - 1-2 days Time of Disposition: 12:36
--- NOTE | 2019-04-03 09:58 | XR ---
EXAMINATION TYPE: XR chest 2V DATE OF EXAM: 04/03/2019 COMPARISON: 07/12/2013 HISTORY: 07/12/2013 TECHNIQUE: PA and lateral views FINDINGS: The cardiomediastinal silhouette, aorta, and pulmonary vasculature are within normal limits. Lungs an d pleural spaces are clear. Bilateral nipple bars. IMPRESSION: No acute cardiopulmonary process.
--- NOTE | 2019-04-03 10:00 | XR ---
KUB HISTORY: Abdominal pain Frontal KUB and 2 images correlated prior KUB 02/26/2014 There are metallic post through the regions of the nipples. Lung bases are clear. This tapers overlyi ng the right and left upper quadrants. No evident bowel obstruction or pneumoperitoneum. Intrauterine contraceptive device has been removed. Some minimal air-fluid levels without bowel distention. Bone mineralization is normal. IMPRESSION: Correlate for enteritis, ileus. Follow-up as indicated. Additional findings above.
[2019-04-03 10:14] LABS: Basophils % (A) 0 %; Eosinophils # (A) 0.1 k/uL (0-0.7); Eosinophils % (A) 2 %; HCT 43.2 % (34.0-46.0); HGB 14.8 gm/dL (11.4-16.0); Lymphocytes # (A) 1.3 k/uL (1.0-4.8); Lymphocytes % (A) 27 %; MCH 31.3 pg (25.0-35.0); MCHC 34.2 g/dL (31.0-37.0); MCV 91.6 fL (80.0-100.0); Mean Platelet Volume 8.5; Monocytes # (A) 0.3 k/uL (0-1.0); Monocytes % (A) 6 %; Neutrophils # (A) 3.2 k/uL (1.3-7.7); Neutrophils % (A) 64 %; Platelet Count 172 k/uL (150-450); RBC 4.72 m/uL (3.80-5.40); RDW 14.9 % (11.5-15.5); WBC 5.1 k/uL (3.8-10.6)
[2019-04-03 10:16] LABS: ALT 21 U/L (9-52); AST 17 U/L (14-36); African American GFR (CKD) >90 (>60 ml/min/1.73 sqM); Albumin 3.9 g/dL (3.5-5.0); Alkaline Phosphatase 67 U/L (38-126); Amylase 42 U/L (30-110); Anion Gap 8 mmol/L; Blood Urea Nitrogen 10 mg/dL (7-17); Calcium 9.2 mg/dL (8.4-10.2); Carbon Dioxide 22 mmol/L (22-30); Chloride 111 mmol/L (98-107); Glucose 96 mg/dL (74-99); INR 0.9 (<1.2); Partial Thromboplastin Time 23.2 sec (22.0-30.0); Potassium 4.5 mmol/L (3.5-5.1); Prothrombin Time 9.4 sec (9.0-12.0); Sodium 141 mmol/L (137-145); Total Bilirubin 0.3 mg/dL (0.2-1.3); Total Protein 6.9 g/dL (6.3-8.2)
[2019-04-03 10:21] LABS: Appearance,Urine Cloudy (Clear); Bacteria,Urine Rare /hpf; Bilirubin,Urine Negative (Negative); Blood,Urine Negative (Negative); Color,Urine Light Yellow; Glucose,Urine (UA) Negative (Negative); Ketones,Urine Negative (Negative); Leukocyte Esterase,Urine Negative (Negative); Mucus,Urine Rare /hpf; Nitrite,Urine Negative (Negative); PH, Urine 5.5 (5.0-8.0); Protein,Urine Negative (Negative); RBC,Urine <1 /hpf (0-5); Specific Gravity,Urine 1.012 (1.001-1.035); Squamous Epithelial Cell,Urine 11 /hpf (0-4); Urobilinogen,Urine <2.0 mg/dL (<2.0); WBC,Urine 1 /hpf (0-5)
[2019-04-03] MEDS ORDERED: HYDROmorphone 1 MG/ML 1 ML SYRINGE IVP STA (11:14)
--- NOTE | 2019-04-03 12:17 | CT ---
EXAMINATION TYPE: CT abdomen pelvis w con DATE OF EXAM: 04/03/2019 COMPARISON: 01/28/2019 INDICATION: right flank pain, nausea, dysuria DLP: 1444.1 mGycm, Automated exposure control for dose reduction was used. CONTRAST: 100 mL of Isovue 300. Study performed without Oral Contrast TECHNIQUE: Axial images were obtained from above the diaphragm to the pubic rami in the axial plane a t 5 mm thick sections. Reconstructed images are reviewed on the computer in the coronal plane. FINDINGS: Limited CT sections are obtained the lung bases. The lung bases are clear. CT ABDOMEN: Liver: Normal Spleen: Normal Pancreas: Normal Adrenal glands: The adrenal glands are normal. Gallbladder: Normal Kidneys: No masses are evident. No hydronephrosis is present. No cysts are present. Delayed images were obtained through the kidneys, which remain unremarkable. Aorta: Normal Inferior vena cava: Normal. CT PELVIS: Loops of bowel within the abdomen and pelvis are normal. There are loops of bowel which are incom pletely distended or lack oral contrast limiting their evaluation. Appendix: Normal as visualized. Urinary bladder: Normal. Genitourinary structures: Uterus is normal. There appear to be tubo-ovarian cysts on the right ovary with a transverse dimension of 1.5 cm each. Couple small follicles are on the left ovary. No signific ant free fluid is in the pelvis. Osseous structures: No suspicious lytic or sclerotic lesions. IMPRESSIONS: 1. 1.5 cm right ovarian cysts. 2. CT abdomen and pelvis otherwise unremarkable.
[2019-04-03] MEDS ORDERED: traMADol 50 MG STARTER PACK 3 TAB BTL PO STA (12:36)
[2019-04-03] MEDS ORDERED: NITROFURANTOIN MONOHYD/M-CRYST 100 MG CAP PO STA (12:36)
[2019-04-03 13:15] VITALS: BP 130/81; PULSE 74; RESP 18; TEMP 98
== END 2019-04-03 13:09 | disposition home or self-care (01) ==
LOC: EC 08:33
DX: N83.201 Unspecified ovarian cyst, right side (principal); N39.0 Urinary tract infection, site not specified; R11.2 Nausea with vomiting, unspecified; F17.200 Nicotine dependence, unspecified, uncomplicated; Z88.5 Allergy status to narcotic agent
CPT/HCPCS: 99284; 96374; 96375 ×3; 96361; 36415; 80053; 82150; 83605; 83690; 85025; 85610; 85730; 81001; 71046; 74018; 74177; J2270; J2405; J1885; J1170; Q9967

== ENCOUNTER 2019-05-05 12:46 | Emergency (ER) | payer OTHER ==
[2019-05-05 13:00] VITALS: BP 133/89; PULSE 78; RESP 18; TEMP 98.4
--- NOTE | 2019-05-05 14:32 | ED ---
Upper Extremity HPI - General Chief Complaint: Extremity Injury, Upper Stated Complaint: rt arm injury Time Seen by Provider: 05/05/19 14:04 Source: patient Mode of arrival: ambulatory Limitations: no limitations - History of Present Illness Initial Comments: Patient is a 38-year-old female presenting to the emergency department complaints of right wrist pain that happened last night. Patient states she got up in the middle night to use the restroom when she slipped getting out of bed and landed on her right hand, wrist. Patient states she has pain mostly in her right wrist that is also radiating up into her right forearm. Patient is able to bend her right elbow. Patient denies numbness and tingling into her hand. Patient denies any previous right wrist or right forearm fractures. Patient does have history of previous right elbow fractures, no surgeries. Patient denies any other injuries from this fall. Patient has no other complaints at this time. Upon arrival to ER, vital signs are stable. - Related Data Home Medications Medication Instructions Recorded Confirmed Acetaminophen [Tylenol Arthritis] 650 mg PO Q12H PRN 04/03/19 04/03/19 Ibuprofen [Motrin] 800 mg PO Q6H PRN 04/03/19 04/03/19 Previous Rx's Medication Instructions Recorded Nitrofurantoin Monohyd/M-Cryst 100 mg PO Q12HR #14 cap 04/03/19 [Macrobid] Allergies Allergy/AdvReac Type Severity Reaction Status Date / Time codeine AdvReac Nausea & Verified 04/03/19 08:54 Vomiting Review of Systems ROS Statement: Those systems with pertinent positive or pertinent negative responses have been documented in the HPI. ROS Other: All systems not noted in ROS Statement are negative. Past Medical History Past Medical History: Asthma Additional Past Medical History / Comment(s): OB history: 3 Vaginal deliveries, 2 voluntary terminations. History of Any Multi-Drug Resistant Organisms: None Reported Past Surgical History: Tubal Ligation Additional Past Surgical History / Comment(s): colonoscopy. corrective eye surgery as child. D&C x2 Past Psychological History: Anxiety, Bipolar, Depression, PTSD Smoking Status: Current every day smoker Past Alcohol Use History: None Reported Past Drug Use History: None Reported General Exam - General Exam Comments Initial Comments: GENERAL: Well-appearing, well-nourished and in no acute distress. HEAD: Atraumatic, normocephalic. EYES: Pupils equal round and reactive to light, extraocular movements intact, sclera anicteric, conjunctiva are normal. NECK: Normal range of motion, supple without lymphadenopathy or JVD. LUNGS: Breath sounds clear to auscultation bilaterally and equal. No wheezes rales or rhonchi. HEART: Regular rate and rhythm without murmurs, rubs or gallops. ABDOMEN: Soft, nontender, normoactive bowel sounds. No masses appreciated. EXTREMITIES: Pain with palpation of the right medial and lateral aspect of the wrist. Decreased range of motion secondary to pain. Mild pain with palpation of the right forearm. Patient has full elbow and hand range of motion. Patient is neurovascular intact. There is no swelling present. NEUROLOGICAL: Cranial nerves II through XII grossly intact. Normal speech, normal gait. SKIN: Warm, Dry, normal turgor, no rashes or lesions noted. Limitations: no limitations Course Vital Signs 05/05/19 12:56 Temperature 98.4 F Pulse Rate 78 Respiratory 18 Rate Blood Pressure 133/89 O2 Sat by Pulse 98 Oximetry Medical Decision Making - Medical Decision Making Patient is a 38-year-old female presenting with right wrist and right forearm pain after falling out of bed last night. No other injuries from the fall. X- rays of the right wrist and forearm show an old and healed radial neck fracture that was noted on exam in 2018. No acute fractures or dislocations. Does recommend the patient where brace at home as well as continue with Motrin and/or Tylenol for pain relief. Patient can also use ice for swelling and pain. Patient will follow up with PCP or orthopedics if symptoms persist after one to 2 weeks. Patient is in agreement with this plan of care. Patient is stable for discharge at this time. Return parameters were discussed with the patient she verbalized understanding. Case discussed with Dr. Molina. Disposition Clinical Impression: Right wrist pain, Right wrist sprain Disposition: HOME SELF-CARE Condition: Stable Instructions (If sedation given, give patient instructions): Wrist Injury (ED) Additional Instructions: Please return to the Emergency Department if symptoms worsen or any other concerns. Follow-up with PCP or orthopedics if pain persists after one to 2 weeks. Use Motrin or Tylenol for pain relief. May use ice as well. Is patient prescribed a controlled substance at d/c from ED?: No Referrals: Indira Angelo MD [Primary Care Provider] - 1-2 days
[2019-05-05] MEDS ORDERED: IBUPROFEN 600 MG TAB PO STA (14:44)
--- NOTE | 2019-05-05 14:53 | XR ---
Right wrist and right forearm right wrist and right forearm HISTORY: Trauma and pain 4 views of the right wrist, 2 views of the right forearm correlated to right elbow dated 12/07/2017 Radial head fracture is likely chronic and was noted on prior exam. No other evident fracture or disl ocation. Bone mineralization, joint spaces and alignment are maintained. IMPRESSION: Radial head fracture is likely neck.
== END 2019-05-05 15:18 | disposition home or self-care (01) ==
LOC: EC 12:46
DX: S63.501A Unspecified sprain of right wrist, initial encounter (principal); F17.200 Nicotine dependence, unspecified, uncomplicated; Z88.5 Allergy status to narcotic agent; W01.0XXA Fall on same level from slipping, tripping and stumbling without subsequent striking against object, initial encounter; Y92.009 Unspecified place in unspecified non-institutional (private) residence as the place of occurrence of the external cause
CPT/HCPCS: 99283

== ENCOUNTER 2019-07-02 20:13 | Emergency (ER) | payer OTHER ==
[2019-07-02 20:18] VITALS: TEMP 98
[2019-07-02] MEDS ORDERED: IPRATROPIUM-ALBUTEROL 3 ML NEB INHALATION STA (20:42)
--- NOTE | 2019-07-02 20:46 | ED ---
General Adult HPI - General Chief complaint: Upper Respiratory Infection Stated complaint: Fever/cough Time Seen by Provider: 07/02/19 20:19 Source: patient, family, RN notes reviewed Mode of arrival: ambulatory Limitations: no limitations - History of Present Illness Initial comments: 39-year-old female with a past medical history of asthma presents to the emergency department for a chief complaint of cough. Patient states he has had a cough for the past 3 days. States she's also had a sore throat and bilateral ear pressure. States she feels like she has had fevers on and off but has not checked her temperature. States that she feels lightheaded and is congested. Denies nausea or vomiting. Patient denies recent congestion or shortness of breath. Patient does have a history of asthma. Patient is a current every day smoker.Patient has no other complaints at this time including shortness of breath, chest pain, abdominal pain, nausea or vomiting, headache, or visual changes. - Related Data Home Medications Medication Instructions Recorded Confirmed Acetaminophen [Tylenol Arthritis] 650 mg PO Q12H PRN 04/03/19 04/03/19 Ibuprofen [Motrin] 800 mg PO Q6H PRN 04/03/19 04/03/19 Previous Rx's Medication Instructions Recorded Nitrofurantoin Monohyd/M-Cryst 100 mg PO Q12HR #14 cap 04/03/19 [Macrobid] Amoxicillin/Potassium Clav 1 tab PO Q12HR #20 tab 07/02/19 [Augmentin 875-125 Tablet] Fluticasone Propionate [Flonase 1 spray EA NOSTRIL DAILY 7 Days #1 07/02/19 Allergy Relief] bottle Allergies Allergy/AdvReac Type Severity Reaction Status Date / Time codeine AdvReac Nausea & Verified 07/02/19 20:18 Vomiting Review of Systems ROS Statement: Those systems with pertinent positive or pertinent negative responses have been documented in the HPI. ROS Other: All systems not noted in ROS Statement are negative. Past Medical History Past Medical History: Asthma Additional Past Medical History / Comment(s): OB history: 3 Vaginal deliveries, 2 voluntary terminations. History of Any Multi-Drug Resistant Organisms: None Reported Past Surgical History: Tubal Ligation Additional Past Surgical History / Comment(s): colonoscopy. corrective eye surgery as child. D&C x2 Past Psychological History: Anxiety, Bipolar, Depression, PTSD Smoking Status: Current every day smoker Past Alcohol Use History: None Reported Past Drug Use History: None Reported General Exam Limitations: no limitations General appearance: alert, in no apparent distress Head exam: Present: atraumatic, normocephalic, normal inspection Eye exam: Present: normal appearance, PERRL, EOMI. Absent: scleral icterus, co njunctival injection, periorbital swelling ENT exam: Present: normal exam, normal oropharynx (Nonerythematous, uvula midline, no tonsillar exudates bilaterally), mucous membranes moist, normal external ear exam. Absent: TM's normal bilaterally (Left Tympanic membrane erythematous, nonbulging. Right tympanic membrane appears within normal limits.) Neck exam: Present: normal inspection, full ROM. Absent: tenderness, meningismus, lymphadenopathy Respiratory exam: Present: normal lung sounds bilaterally. Absent: respiratory distress, wheezes, rales, rhonchi, stridor Cardiovascular Exam: Present: regular rate, normal rhythm, normal heart sounds. Absent: systolic murmur, diastolic murmur, rubs, gallop, clicks GI/Abdominal exam: Present: soft, normal bowel sounds. Absent: distended, tenderness, guarding, rebound, rigid Neurological exam: Present: alert Psychiatric exam: Present: normal affect, normal mood Course Vital Signs 07/02/19 07/02/19 07/02/19 20:16 20:23 20:42 Temperature 98 F Pulse Rate 115 H 81 Respiratory 26 H 18 18 Rate Blood Pressure 144/89 O2 Sat by Pulse 98 97 Oximetry 07/02/19 07/02/19 21:22 21:31 Temperature Pulse Rate 74 77 Respiratory 16 16 Rate Blood Pressure O2 Sat by Pulse Oximetry Procedures - Smoking Cessation Time Spent Discussing Smoking Cessation w/Patient (Minutes): 3 Patient Acknowledges Need for Cessation: Yes Medical Decision Making - Medical Decision Making 39-year-old female presents for a chief complaint of cough congestion. Patient has a history of asthma however denies shortness of breath at this time. Patient is a smoker. Counseled greater than 3 minutes on smoking cessation. Patient states she feels lightheaded so I did recommend blood work and fluids however she refused When nurse went to go do this. Chest x-ray is negative for pneumonia. Influenza and strep were negative. However patient does have an erythematous left tympanic membranes and will be treated with Augmentin. She was also given Flonase spray she'll follow up with primary care in 1-2 days and return if she has any worsening symptoms. - Lab Data Lab Results 07/02/19 07/02/19 Range/Units 21:00 21:00 Influenza Type A RNA Not Detected (Not Detectd) Influenza Type B (PCR) Not Detected (Not Detectd) Group A Strep Rapid Negative (Negative) Disposition Clinical Impression: Otitis media Disposition: HOME SELF-CARE Condition: Good Instructions (If sedation given, give patient instructions): Ear Infection (ED) Additional Instructions: Please take Motrin and Tylenol for pain or fever. Please drink plenty of fl uids. Take Augmentin as directed for ear infection. Use nasal spray for congestion. Follow-up with primary care in 1-2 days. Return to the emergency department if you have any worsening symptoms. Prescriptions: Amoxicillin/Potassium Clav [Augmentin 875-125 Tablet] 1 tab PO Q12HR #20 tab Fluticasone Propionate [Flonase Allergy Relief] 1 spray EA NOSTRIL DAILY 7 Days #1 bottle Is patient prescribed a controlled substance at d/c from ED?: No Referrals: Indira Angelo MD [Primary Care Provider] - 1-2 days Time of Disposition: 22:16
--- NOTE | 2019-07-02 21:22 | XR ---
EXAMINATION TYPE: XR chest 2V DATE OF EXAM: 07/02/2019 COMPARISON: 04/03/2019 HISTORY: Cough TECHNIQUE: 2 views FINDINGS: Heart and mediastinum are normal. Lungs are clear. Diaphragm is normal. Bony thorax appears normal. There are chest leads. IMPRESSION: Normal chest. No change.
[2019-07-02 21:24] VITALS: RESP 16
[2019-07-02] MEDS ORDERED: AMOXIC-POT CLAV 875MG STARTER 2 EACH TABLET PO STA (22:17)
[2019-07-02 22:32] VITALS: BP 110/64; PULSE 84
== END 2019-07-02 22:32 | disposition home or self-care (01) ==
LOC: EC 20:13
DX: H66.90 Otitis media, unspecified, unspecified ear (principal); R05 Cough; R09.81 Nasal congestion; R42 Dizziness and giddiness; F17.200 Nicotine dependence, unspecified, uncomplicated; Z71.6 Tobacco abuse counseling; Z53.20 Procedure and treatment not carried out because of patient's decision for unspecified reasons; Z88.5 Allergy status to narcotic agent; Z87.09 Personal history of other diseases of the respiratory system
CPT/HCPCS: 71046; 87081; 87430; 87502; 94640; 99284

== ENCOUNTER 2019-07-18 20:12 | Emergency (ER) | payer OTHER ==
[2019-07-18] MEDS ORDERED: SODIUM CHLORIDE 0.9% 1,000 ML IV STA (20:46)
--- NOTE | 2019-07-18 21:13 | ED ---
Psych HPI - General Chief Complaint: Psychiatric Symptoms Stated Complaint: Mental health, possible overdose Time Seen by Provider: 07/18/19 20:45 Source: patient, EMS Mode of arrival: ambulatory - History of Present Illness Initial Comments: This patient is a 39-year-old woman who presents to be evaluated for extreme anxiety and having taken an overdose. The patient states that she has had a lot of stress over the holidays, including the fact that she probably will be getti ng a divorce, she has not seen her children over the holidays yet. She states that she had some muscle relaxants at home and thought that this would help her sleep so she took 6 of those. The patient then became concerned that she may have overdosed. She did self induce vomiting. Patient called crisis line and was told she should be evaluated in emergency department. The patient states she is not feeling suicidal. She does feel like she is having racing thoughts and feels out of control. MD Complaint: other (Feels very anxious) -: days(s) Associated Psychiatric Symptoms: racing thoughts History of same: Yes Quality: getting worse Improves With: none Worsens With: none Context: significant life stressor Associated Symptoms: denies other symptoms - Related Data Home Medications Medication Instructions Recorded Confirmed Acetaminophen [Tylenol Arthritis] 650 mg PO Q12H PRN 04/03/19 04/03/19 Ibuprofen [Motrin] 800 mg PO Q6H PRN 04/03/19 04/03/19 Previous Rx's Medication Instructions Recorded Nitrofurantoin Monohyd/M-Cryst 100 mg PO Q12HR #14 cap 04/03/19 [Macrobid] Amoxicillin/Potassium Clav 1 tab PO Q12HR #20 tab 07/02/19 [Augmentin 875-125 Tablet] Fluticasone Propionate [Flonase 1 spray EA NOSTRIL DAILY 7 Days #1 07/02/19 Allergy Relief] bottle Allergies Allergy/AdvReac Type Severity Reaction Status Date / Time codeine AdvReac Nausea & Verified 07/18/19 20:20 Vomiting Review of Systems ROS Statement: Those systems with pertinent positive or pertinent negative responses have been documented in the HPI. ROS Other: All systems not noted in ROS Statement are negative. Constitutional: Denies: fever, chills Eyes: Denies: vision change Respiratory: Denies: cough, dyspnea Cardiovascular: Denies: chest pain, palpitations, syncope Gastrointestinal: Reports: vomiting. Denies: abdominal pain, nausea, hematemesis, melena, hematochezia Musculoskeletal: Denies: back pain Skin: Denies: rash Neurological: Denies: headache, weakness Psychiatric: Reports: anxiety. Denies: depression, auditory hallucinations, visual hallucinations, homicidal thoughts, suicidal thoughts Past Medical History Past Medical History: Asthma Additional Past Medical History / Comment(s): OB history: 3 Vaginal deliveries, 2 voluntary terminations. History of Any Multi-Drug Resistant Organisms: None Reported Past Surgical History: Tubal Ligation Additional Past Surgical History / Comment(s): colonoscopy. corrective eye surgery as child. D&C x2 Past Psychological History: Anxiety, Bipolar, Depression, PTSD Smoking Status: Current every day smoker Past Alcohol Use History: None Reported Past Drug Use History: Marijuana General Exam Limitations: no limitations General appearance: alert, anxious Head exam: Present: atraumatic, normocephalic Eye exam: Present: normal appearance. Absent: scleral icterus, conjunctival injection ENT exam: Present: normal oropharynx Neck exam: Present: normal inspection Respiratory exam: Present: normal lung sounds bilaterally. Absent: respiratory distress, wheezes, rales, rhonchi, stridor Cardiovascular Exam: Present: regular rate, normal rhythm, normal heart sounds. Absent: systolic murmur, diastolic murmur, rubs, gallop GI/Abdominal exam: Present: soft. Absent: distended, tenderness, guarding, rebound, rigid, mass Extremities exam: Present: normal inspection, normal capillary refill. Absent: pedal edema, calf tenderness Back exam: Present: normal inspection. Absent: CVA tenderness (R), CVA tenderness (L) Neurological exam: Present: alert, oriented X3 Psychiatric exam: Present: anxious. Absent: depressed, agitated, flat affect, manic, homicidal ideation, suicidal ideation Skin exam: Present: warm, dry, intact, normal color. Absent: rash Course Vital Signs 07/18/19 07/18/19 20:17 22:54 Temperature 97.8 F Pulse Rate 132 H 81 Respiratory 22 18 Rate Blood Pressure 158/98 133/80 O2 Sat by Pulse 99 Oximetry Medical Decision Making - Lab Data Result diagrams: 07/18/19 22:40 07/18/19 22:40 Lab Results 07/18/19 07/18/19 07/18/19 Range/Units 22:40 22:40 22:40 WBC 8.3 (3.8-10.6) k/uL RBC 5.16 (3.80-5.40) m/uL Hgb 16.1 H (11.4-16.0) gm/dL Hct 48.4 H (34.0-46.0) % MCV 93.8 (80.0-100.0) fL MCH 31.2 (25.0-35.0) pg MCHC 33.3 (31.0-37.0) g/dL RDW 12.6 (11.5-15.5) % Plt Count 175 (150-450) k/uL Neutrophils % 68 % Lymphocytes % 24 % Monocytes % 5 % Eosinophils % 1 % Basophils % 1 % Neutrophils # 5.7 (1.3-7.7) k/uL Lymphocytes # 2.0 (1.0-4.8) k/uL Monocytes # 0.4 (0-1.0) k/uL Eosinophils # 0.1 (0-0.7) k/uL Basophils # 0.1 (0-0.2) k/uL Sodium 138 (137-145) mmol/L Potassium 4.3 (3.5-5.1) mmol/L Chloride 108 H (98-107) mmol/L Carbon Dioxide 20 L (22-30) mmol/L Anion Gap 10 mmol/L BUN 8 (7-17) mg/dL Creatinine 0.66 (0.52-1.04) mg/dL Est GFR (CKD-EPI)AfAm >90 (>60 ml/min/1.73 sqM) Est GFR (CKD-EPI)NonAf >90 (>60 ml/min/1.73 sqM) Glucose 87 (74-99) mg/dL Calcium 9.9 (8.4-10.2) mg/dL Total Bilirubin 0.7 (0.2-1.3) mg/dL AST 22 (14-36) U/L ALT 16 (4-34) U/L Alkaline Phosphatase 83 (38-126) U/L Total Protein 8.0 (6.3-8.2) g/dL Albumin 4.5 (3.5-5.0) g/dL Urine HCG, Qual Not Detected (Not Detectd) Salicylates <1.0 mg/dL Acetaminophen <10.0 ug/mL Serum Alcohol <10 mg/dL - EKG Data -: EKG Interpreted by Me EKG shows normal: sinus rhythm, axis (Normal), intervals (Normal), QRS complexes (Normal), ST-T waves (Normal) Rate: normal (Rate 78 bpm) Interpretation: normal EKG Disposition Clinical Impression: Overdose Disposition: HOME SELF-CARE Condition: Good Instructions (If sedation given, give patient instructions): Adult Overdose (ED) Is patient prescribed a controlled substance at d/c from ED?: No Referrals: Indira Angelo MD [Primary Care Provider] - 1-2 days
[2019-07-18 22:52] LABS: Basophils # (A) 0.1 k/uL (0-0.2); Basophils % (A) 1 %; Eosinophils # (A) 0.1 k/uL (0-0.7); Eosinophils % (A) 1 %; HCT 48.4 % (34.0-46.0); HGB 16.1 gm/dL (11.4-16.0); Lymphocytes % (A) 24 %; MCH 31.2 pg (25.0-35.0); MCHC 33.3 g/dL (31.0-37.0); MCV 93.8 fL (80.0-100.0); Mean Platelet Volume 8.6; Monocytes # (A) 0.4 k/uL (0-1.0); Monocytes % (A) 5 %; Neutrophils # (A) 5.7 k/uL (1.3-7.7); Neutrophils % (A) 68 %; Platelet Count 175 k/uL (150-450); RBC 5.16 m/uL (3.80-5.40); RDW 12.6 % (11.5-15.5); WBC 8.3 k/uL (3.8-10.6)
[2019-07-18 22:56] VITALS: RESP 18
[2019-07-18 23:09] LABS: ALT 16 U/L (4-34); AST 22 U/L (14-36); Acetaminophen <10.0 ug/mL; African American GFR (CKD) >90 (>60 ml/min/1.73 sqM); Albumin 4.5 g/dL (3.5-5.0); Alcohol <10 mg/dL; Alkaline Phosphatase 83 U/L (38-126); Anion Gap 10 mmol/L; Blood Urea Nitrogen 8 mg/dL (7-17); Calcium 9.9 mg/dL (8.4-10.2); Carbon Dioxide 20 mmol/L (22-30); Chloride 108 mmol/L (98-107); Glucose 87 mg/dL (74-99); Non-African American GFR(CKD) >90 (>60 ml/min/1.73 sqM); Potassium 4.3 mmol/L (3.5-5.1); Salicylate <1.0 mg/dL; Sodium 138 mmol/L (137-145); Total Bilirubin 0.7 mg/dL (0.2-1.3)
[2019-07-18 23:58] LABS: Amphetamine Screen,Urine Not Detected (NotDetected); Barbiturate Screen,Urine Not Detected (NotDetected); Benzodiazepines Screen,Urine Not Detected (NotDetected); Cocaine Screen,Urine Not Detected (NotDetected); Methadone Screen, Urine Not Detected (NotDetected); Opiate Screen,Urine Not Detected (NotDetected); Oxycodone Screen, Urine Not Detected (NotDetected); Phencyclidine Screen,Urine Not Detected (NotDetected); Tricyclic Antidepressant,Urine Not Detected (NotDetected); Urn Cannabinoid Scrn Not Detected (NotDetected)
[2019-07-19 00:36] VITALS: BP 126/73; PULSE 96; TEMP 98.2
== END 2019-07-19 00:43 | disposition home or self-care (01) ==
LOC: EC 20:12
DX: T43.501A Poisoning by unspecified antipsychotics and neuroleptics, accidental (unintentional), initial encounter (principal); F17.200 Nicotine dependence, unspecified, uncomplicated; Z88.5 Allergy status to narcotic agent; Z63.79 Other stressful life events affecting family and household
CPT/HCPCS: 82075; 36415; 93005; 80053; 85025; 81025; 80306; 83520; 99284; 96360; 96361; G0480 ×2; 80320; 80329

== ENCOUNTER 2020-04-15 08:56 | Emergency (ER) | payer OTHER ==
[2020-04-15 09:05] VITALS: BP 139/85; PULSE 93; RESP 18; TEMP 98.1
--- NOTE | 2020-04-15 09:21 | ED ---
Upper Extremity HPI - General Chief Complaint: Extremity Injury, Upper Stated Complaint: fall/arm pain Time Seen by Provider: 04/15/20 09:03 Source: patient, RN notes reviewed Mode of arrival: ambulatory Limitations: no limitations - History of Present Illness Initial Comments: 39-year-old female presents emergency Department with chief complaint of fall. She states she got up to go to the bathroom And fell in her house landing on her left arm. Patient has pain on her left elbow. Patient states she has some shooting pain and numbness towards her fifth digit of her left hand she is right-hand dominant. Denies any head injury no neck pain or neck stiffness or shoulder discomfort. - Related Data Home Medications Medication Instructions Recorded Confirmed Acetaminophen [Tylenol Arthritis] 650 mg PO Q12H PRN 04/03/19 04/03/19 Ibuprofen [Motrin] 800 mg PO Q6H PRN 04/03/19 04/03/19 Previous Rx's Medication Instructions Recorded Nitrofurantoin Monohyd/M-Cryst 100 mg PO Q12HR #14 cap 04/03/19 [Macrobid] Amoxicillin/Potassium Clav 1 tab PO Q12HR #20 tab 07/02/19 [Augmentin 875-125 Tablet] Fluticasone Propionate [Flonase 1 spray EA NOSTRIL DAILY 7 Days #1 07/02/19 Allergy Relief] bottle Ibuprofen [Motrin] 800 mg PO Q6HR #30 tab 04/15/20 traMADol HCl [Ultram] 50 mg PO Q6H PRN #12 tab 04/15/20 Allergies Allergy/AdvReac Type Severity Reaction Status Date / Time codeine AdvReac Nausea & Verified 04/15/20 09:05 Vomiting Review of Systems ROS Statement: Those systems with pertinent positive or pertinent negative responses have been documented in the HPI. ROS Other: All systems not noted in ROS Statement are negative. Past Medical History Past Medical History: Asthma Additional Past Medical History / Comment(s): OB history: 3 Vaginal deliveries, 2 voluntary terminations. History of Any Multi-Drug Resistant Organisms: None Reported Past Surgical History: Tubal Ligation Additional Past Surgical History / Comment(s): colonoscopy. corrective eye surgery as child. D&C x2 Past Psychological History: Anxiety, Bipolar, Depression, PTSD Smoking Status: Current every day smoker Past Alcohol Use History: None Reported Past Drug Use History: Marijuana General Exam Limitations: no limitations General appearance: alert, in no apparent distress Head exam: Present: atraumatic, normocephalic, normal inspection Respiratory exam: Present: normal lung sounds bilaterally. Absent: respiratory distress, wheezes, rales, rhonchi, stridor Cardiovascular Exam: Present: regular rate, normal rhythm, normal heart sounds. Absent: systolic murmur, diastolic murmur, rubs, gallop, clicks Extremities exam: Present: other (Left elbow there is moderate tenderness with palpation lateral portion patient has pain with flexion-extension pronation sup ination. Wrist is intact nontender, neurovascular intact equal color equal warmth of upper extremities there is no localized shoulder tenderness patient's full range motion ) Course Vital Signs 04/15/20 09:01 Temperature 98.1 F Pulse Rate 93 Respiratory 18 Rate Blood Pressure 139/85 O2 Sat by Pulse 95 Oximetry Medical Decision Making - Medical Decision Making X-rays were reviewed there are no acute fracture. Patient has a left arm strain. Patient will be discharged with pain control anti-inflammatories return parameters were discussed. Disposition Clinical Impression: Strain of left elbow, Fall Disposition: HOME SELF-CARE Condition: Stable Instructions (If sedation given, give patient instructions): Elbow Sprain (ED) Additional Instructions: Please return to the Emergency Department if symptoms worsen or any other concerns. Prescriptions: Ibuprofen [Motrin] 800 mg PO Q6HR #30 tab traMADol HCl [Ultram] 50 mg PO Q6H PRN #12 tab PRN Reason: Pain Is patient prescribed a controlled substance at d/c from ED?: Yes When asked, does pt state using other controlled substances?: No If prescribed controlled substance>3 days was MAPS reviewed?: Prescribed <3 Days If opioid is for acute pain is fill amount 7 days or less?: Yes If Rx opioid, was Start Talking consent form obtained?: Yes Referrals: Deonte Espana DO [Primary Care Provider] - 1-2 days Time of Disposition: 09:58
--- NOTE | 2020-04-15 09:52 | XR ---
EXAMINATION TYPE: XR elbow complete LT DATE OF EXAM: 04/15/2020 COMPARISON: NONE HISTORY: Pain FINDINGS: Three views of the elbow demonstrate no pathologic joint effusion. The osseous structures are intact . There is no acute fracture or dislocation. IMPRESSION: 1. No acute fracture or dislocation. If symptoms persist follow-up study in 7 to 10 days could be ob tained.
== END 2020-04-15 10:18 | disposition home or self-care (01) ==
LOC: EC 08:56
DX: S53.492A Other sprain of left elbow, initial encounter (principal); F17.200 Nicotine dependence, unspecified, uncomplicated; Z88.5 Allergy status to narcotic agent; W01.0XXA Fall on same level from slipping, tripping and stumbling without subsequent striking against object, initial encounter; Y93.89 Activity, other specified; Y92.009 Unspecified place in unspecified non-institutional (private) residence as the place of occurrence of the external cause
CPT/HCPCS: 99283

== ENCOUNTER 2020-05-09 09:04 | Emergency (ER) | payer OTHER ==
[2020-05-09 09:16] VITALS: RESP 18; TEMP 98.1
[2020-05-09] MEDS ORDERED: SODIUM CHLORIDE 0.9% 1,000 ML IV STA ×2 (10:05)
[2020-05-09] MEDS ORDERED: LORazepam 2 MG/ML INJ IV STA (10:33)
[2020-05-09 10:36] LABS: Basophils % (A) 1 %; Eosinophils # (A) 0.1 k/uL (0-0.7); Eosinophils % (A) 2 %; HCT 46.4 % (34.0-46.0); HGB 15.2 gm/dL (11.4-16.0); Lymphocytes # (A) 1.3 k/uL (1.0-4.8); Lymphocytes % (A) 27 %; MCH 32.6 pg (25.0-35.0); MCHC 32.7 g/dL (31.0-37.0); MCV 99.5 fL (80.0-100.0); Mean Platelet Volume 8.4; Monocytes # (A) 0.3 k/uL (0-1.0); Monocytes % (A) 6 %; Neutrophils % (A) 63 %; Platelet Count 171 k/uL (150-450); RBC 4.66 m/uL (3.80-5.40); RDW 12.6 % (11.5-15.5); WBC 4.7 k/uL (3.8-10.6)
--- NOTE | 2020-05-09 10:44 | ED ---
Neuro HPI - General Chief Complaint: Neuro Symptoms/Deficit Stated Complaint: left side numbness face/fingers Time Seen by Provider: 05/09/20 09:43 Source: patient, RN notes reviewed, old records reviewed Mode of arrival: wheelchair Limitations: no limitations - History of Present Illness Is the patient presenting with stroke symptoms?: No Initial Comments: Patient's 31-year-old female who presents emergency room attaching complaint of numbness and healing on the left side of her face and arms. Patient's reports symptoms started 2 days ago after having intercourse. She denies any motor neurological deficit. She does report significant anxiety. She reports that the symptoms have continued to persist the past 2 days. She denies any headache or other complaints of pain. - Related Data Home Medications: Home Medications Medication Instructions Recorded Confirmed Omeprazole Magnesium [PriLOSEC OTC] 20 mg PO DAILY 05/09/20 05/09/20 Previous Rx's Medication Instructions Recorded LORazepam [Ativan] 1 mg PO BID 2 Days #6 tab 05/09/20 LORazepam [Ativan] 1 mg PO BID 3 Days #6 tab 05/09/20 Allergies/Adverse Reactions: Allergies Allergy/AdvReac Type Severity Reaction Status Date / Time codeine AdvReac Nausea & Verified 05/09/20 11:56 Vomiting Review of Systems ROS Statement: Those systems with pertinent positive or pertinent negative responses have been documented in the HPI. ROS Other: All systems not noted in ROS Statement are negative. General Exam Limitations: no limitations Stroke MDM - Lab Data Result diagrams: 05/09/20 10:26 05/09/20 10:26 Lab Results 05/09/20 05/09/20 05/09/20 Range/Units 10:26 10:26 10:26 WBC 4.7 (3.8-10.6) k/uL RBC 4.66 (3.80-5.40) m/uL Hgb 15.2 (11.4-16.0) gm/dL Hct 46.4 H (34.0-46.0) % MCV 99.5 (80.0-100.0) fL MCH 32.6 (25.0-35.0) pg MCHC 32.7 (31.0-37.0) g/dL RDW 12.6 (11.5-15.5) % Plt Count 171 (150-450) k/uL Neutrophils % 63 % Lymphocytes % 27 % Monocytes % 6 % Eosinophils % 2 % Basophils % 1 % Neutrophils # 3.0 (1.3-7.7) k/uL Lymphocytes # 1.3 (1.0-4.8) k/uL Monocytes # 0.3 (0-1.0) k/uL Eosinophils # 0.1 (0-0.7) k/uL Basophils # 0.0 (0-0.2) k/uL PT 9.4 (9.0-12.0) sec INR 0.9 (<1.2) APTT 22.0 (22.0-30.0) sec Sodium 138 (137-145) mmol/L Potassium 4.9 (3.5-5.1) mmol/L Chloride 111 H (98-107) mmol/L Carbon Dioxide 21 L (22-30) mmol/L Anion Gap 6 mmol/L BUN 11 (7-17) mg/dL Creatinine 0.65 (0.52-1.04) mg/dL Est GFR (CKD-EPI)AfAm >90 (>60 ml/min/1.73 sqM) Est GFR (CKD-EPI)NonAf >90 (>60 ml/min/1.73 sqM) Glucose 98 (74-99) mg/dL Calcium 9.0 (8.4-10.2) mg/dL Total Bilirubin 0.6 (0.2-1.3) mg/dL AST 26 (14-36) U/L ALT 18 (4-34) U/L Alkaline Phosphatase 59 (38-126) U/L Troponin I (0.000-0.034) ng/mL Total Protein 7.4 (6.3-8.2) g/dL Albumin 4.1 (3.5-5.0) g/dL 05/09/20 Range/Units 10:26 WBC (3.8-10.6) k/uL RBC (3.80-5.40) m/uL Hgb (11.4-16.0) gm/dL Hct (34.0-46.0) % MCV (80.0-100.0) fL MCH (25.0-35.0) pg MCHC (31.0-37.0) g/dL RDW (11.5-15.5) % Plt Count (150-450) k/uL Neutrophils % % Lymphocytes % % Monocytes % % Eosinophils % % Basophils % % Neutrophils # (1.3-7.7) k/uL Lymphocytes # (1.0-4.8) k/uL Monocytes # (0-1.0) k/uL Eosinophils # (0-0.7) k/uL Basophils # (0-0.2) k/uL PT (9.0-12.0) sec INR (<1.2) APTT (22.0-30.0) sec Sodium (137-145) mmol/L Potassium (3.5-5.1) mmol/L Chloride (98-107) mmol/L Carbon Dioxide (22-30) mmol/L Anion Gap mmol/L BUN (7-17) mg/dL Creatinine (0.52-1.04) mg/dL Est GFR (CKD-EPI)AfAm (>60 ml/min/1.73 sqM) Est GFR (CKD-EPI)NonAf (>60 ml/min/1.73 sqM) Glucose (74-99) mg/dL Calcium (8.4-10.2) mg/dL Total Bilirubin (0.2-1.3) mg/dL AST (14-36) U/L ALT (4-34) U/L Alkaline Phosphatase (38-126) U/L Troponin I <0.012 (0.000-0.034) ng/mL Total Protein (6.3-8.2) g/dL Albumin (3.5-5.0) g/dL - NIH Stroke Scale 1a. Level of Consciousness: (0) alert 1b. LOC Questions: (0) answers correctly 1c. LOC Commands: (0) performs tasks correctly 2. Best Gaze: (0) normal 3. Visual: (0) no visual loss 4. Facial Palsy: (0) normal symmetrical movement 5a. Motor Arm Left: (0) no drift 5b. Motor Arm Right: (0) no drift 6a. Motor Leg Left: (0) no drift 6b. Motor Leg Right: (0) no drift 7. Limb Ataxia: (0) absent 8. Sensory: (1) mild/moderate sensory loss 9. Best Language: (0) no aphasia 10. Dysarthria: (0) normal 11. Extinction/Inattention: (0) no abnormality - Medical Decision Making 39-year-old female presents emergency department today for paresthesias over the left sidefor the past 2 days. Patient also complains of anxiety and panic attack. Patient has no neurological deficits. No motor function deficits. She is given an NIH of 1 with the paresthesias on the face. Patient's labs r eviewed were normal. EKG shows no acute changes. CT shows no acute intracranial abnormality noted. Chest x-ray shows no acute cardio primary process. Physical symptoms likely are related to anxiety however no motor function and normal computed tomography scan discussed low probability of neurological or stroke before the onset of symptoms. - Radiology Data Radiology results: report reviewed - EKG Data -: EKG Interpreted by De Rate: normal 05/09/20 10:44 EKG performed shows sinus rhythm normal EKG. Ventricular rate of 80 bpm. Intervals 160 ms. She latter-day is 78 ms. QRS duration is 340/41 ms. Past Medical History Past Medical History: Asthma Additional Past Medical History / Comment(s): OB history: 3 Vaginal deliveries, 2 voluntary terminations. History of Any Multi-Drug Resistant Organisms: None Reported Past Surgical History: Tubal Ligation Additional Past Surgical History / Comment(s): colonoscopy. corrective eye surgery as child. D&C x2 Past Psychological History: Anxiety, Bipolar, Depression, PTSD Smoking Status: Current every day smoker Past Alcohol Use History: None Reported Past Drug Use History: Marijuana Course Vital Signs 05/09/20 05/09/20 05/09/20 09:13 10:30 11:00 Temperature 98.1 F Pulse Rate 101 H 75 84 Respiratory 18 16 18 Rate Blood Pressure 137/90 133/102 134/95 O2 Sat by Pulse 97 100 100 Oximetry 05/09/20 05/09/20 05/09/20 11:30 11:54 12:00 Temperature Pulse Rate 79 68 73 Respiratory 13 18 18 Rate Blood Pressure 123/87 94/56 125/79 O2 Sat by Pulse 98 97 98 Oximetry Disposition Clinical Impression: Anxiety, Facial paresthesia Disposition: HOME SELF-CARE Condition: Good Additional Instructions: She advised to a follow-up with primary care doctor on Wednesday. Take medication as needed for anxiety. Return to the ED if any alarming signs or symptoms occur. Prescriptions: LORazepam [Ativan] 1 mg PO BID 2 Days #6 tab LORazepam [Ativan] 1 mg PO BID 3 Days #6 tab Is patient prescribed a controlled substance at d/c from ED?: No Referrals: [facility] [Primary Care Provider] - 1-2 days
[2020-05-09 10:47] LABS: ALT 18 U/L (4-34); AST 26 U/L (14-36); African American GFR (CKD) >90 (>60 ml/min/1.73 sqM); Albumin 4.1 g/dL (3.5-5.0); Alkaline Phosphatase 59 U/L (38-126); Anion Gap 6 mmol/L; Blood Urea Nitrogen 11 mg/dL (7-17); Carbon Dioxide 21 mmol/L (22-30); Chloride 111 mmol/L (98-107); Glucose 98 mg/dL (74-99); Non-African American GFR(CKD) >90 (>60 ml/min/1.73 sqM); Sodium 138 mmol/L (137-145); Total Bilirubin 0.6 mg/dL (0.2-1.3); Total Protein 7.4 g/dL (6.3-8.2)
[2020-05-09 10:50] LABS: Potassium 4.9 mmol/L (3.5-5.1)
--- NOTE | 2020-05-09 11:00 | CT ---
EXAMINATION TYPE: CT brain wo con for TPA DATE OF EXAM: 05/09/2020 COMPARISON: 04/26/2016 HISTORY: 39-year-old female Left sided facial and hand numbness. TECHNIQUE: Examination was done in axial plane without intravenous contrast. Coronal and sagittal r econstructions performed. CT DLP: 1099.4 mGycm Automated exposure control for dose reduction was used. FINDINGS: There is no evidence of acute intracranial hemorrhage, acute ischemic changes, mass, mass-effect, or extra-axial fluid collection. There is no effacement of cerebral sulci or basal subarachnoid cister ns. There is no hydrocephalus. There is no midline shift. Olson-white matter distinction is preserv ed. Rightward nasal septal deviation. Paranasal sinuses and mastoid air cells well pneumatized. Orbits an d globes are intact. IMPRESSION: No acute intracranial abnormality seen.
[2020-05-09 11:04] LABS: INR 0.9 (<1.2); Prothrombin Time 9.4 sec (9.0-12.0)
--- NOTE | 2020-05-09 11:11 | XR ---
EXAMINATION TYPE: XR chest 2V DATE OF EXAM: 05/09/2020 COMPARISON: Prior chest x-ray 07/02/2019 HISTORY: Altered mental status TECHNIQUE: Frontal and lateral views of the chest are obtained. FINDINGS: There is no focal air space opacity, pleural effusion, or pneumothorax seen. The cardiac silhouette size is within normal limits. There are overlying cardiac leads. There may be a spinal cu rvature. Metallic posts are present to the level of the nipples. The osseous structures are intact. IMPRESSION: No acute cardiopulmonary process.
[2020-05-09 12:19] VITALS: BP 125/79; PULSE 73
== END 2020-05-09 12:18 | disposition home or self-care (01) ==
LOC: EC 09:04
DX: R20.2 Paresthesia of skin (principal); F41.9 Anxiety disorder, unspecified; F17.200 Nicotine dependence, unspecified, uncomplicated; Z79.899 Other long term (current) drug therapy; Z88.5 Allergy status to narcotic agent
CPT/HCPCS: 36415; 93005; 80053; 84484; 85025; 85610; 85730; 71046; 70450; 99285; 96374; 96361 ×2; J2060

== ENCOUNTER 2020-07-15 21:49 | Emergency (ER) | payer OTHER ==
[2020-07-15] MEDS ORDERED: SULFAMETHOX-TMP 800-160MG 1 EACH TAB PO STA (22:39)
--- NOTE | 2020-07-15 22:42 | ED ---
Skin/Abscess/FB HPI - General Chief complaint: Skin/Abscess/Foreign Body Stated complaint: Infection in right arm Time Seen by Provider: 07/15/20 22:12 Source: patient Mode of arrival: ambulatory Limitations: no limitations - History of Present Illness Initial comments: Patient's 40-year-old woman who presents for concern about possible infection at the site of new tattoos. The patient states she had tattoos applied to the right and left upper arms 2 days ago. She states that over the course of the past day she has noticed increasing redness and warmth and also minimal amount of swelling at the site of these tattoos. Patient states she also just feels a little off, but has not noted fever or chills, chest pain, dyspnea or palpitations. MD complaint: discoloration Onset/Timin -: days(s) Tetanus Up to Date: yes Location: [facility] Severity: mild Quality: burning Consistency: constant Improves with: none Worsens with: none Associated symptoms: malaise Treatments Prior to Arrival: none - Related Data Home Medications Medication Instructions Recorded Confirmed D-Methorphan/PE/Acetaminophen 1 tab PO Q12H PRN 07/15/20 07/15/20 [Tylenol Cold Multi-Symp Caplet] Paxil (Unknown Strength) 1 tab PO DAILY 07/15/20 07/15/20 Vivitrol Injection 1 injection SQ DIRECTED PRN 07/15/20 07/15/20 Previous Rx's Medication Instructions Recorded Sulfamethox-Tmp 800-160Mg [Bactrim 2 each PO Q12HR #28 tab 07/15/20 Ds] Allergies Allergy/AdvReac Type Severity Reaction Status Date / Time codeine AdvReac Nausea & Verified 07/15/20 22:06 Vomiting Review of Systems ROS Statement: Those systems with pertinent positive or pertinent negative responses have been documented in the HPI. ROS Other: All systems not noted in ROS Statement are negative. Constitutional: Denies: fever, chills, weakness Respiratory: Denies: cough, dyspnea Cardiovascular: Denies: chest pain, palpitations, edema Gastrointestinal: Denies: abdominal pain, nausea, vomiting Skin: Reports: as per HPI, change in color Neurological: Denies: headache, weakness, numbness Past Medical History Past Medical History: Asthma Additional Past Medical History / Comment(s): OB history: 3 Vaginal deliveries, 2 voluntary terminations. History of Any Multi-Drug Resistant Organisms: None Reported Past Surgical History: Tubal Ligation Additional Past Surgical History / Comment(s): colonoscopy. corrective eye surgery as child. D&C x2 Past Psychological History: Anxiety, Bipolar, Depression, PTSD Smoking Status: Current every day smoker Past Alcohol Use History: None Reported Past Drug Use History: Marijuana General Exam Limitations: no limitations General appearance: alert, in no apparent distress Head exam: Present: atraumatic, normocephalic Eye exam: Present: normal appearance. Absent: scleral icterus, conjunctival injection Respiratory exam: Present: normal lung sounds bilaterally. Absent: respiratory distress, wheezes, rales, rhonchi, stridor Cardiovascular Exam: Present: regular rate, normal rhythm, normal heart sounds. Absent: systolic murmur, diastolic murmur, rubs, gallop Skin exam: Present: warm, dry, erythema, other (The patient does appear to have mild cellulitis at the site of the new tattoos to the right upper and left upper extremities. There is minimal swelling, there is erythema and a little bit of warmth. No purulent drainage.). Absent: rash Course Vital Signs 07/15/20 07/15/20 07/15/20 22:00 22:18 22:52 Temperature 99.2 F 99 F Pulse Rate 125 H 108 H 104 H Respiratory 18 24 20 Rate Blood Pressure 115/102 140/85 140/88 O2 Sat by Pulse 95 96 96 Oximetry Disposition Clinical Impression: Cellulitis Disposition: HOME SELF-CARE Condition: Good Instructions (If sedation given, give patient instructions): Cellulitis (ED) Prescriptions: Sulfamethox-Tmp 800-160Mg [Bactrim Ds] 2 each PO Q12HR #28 tab Is patient prescribed a controlled substance at d/c from ED?: No Referrals: [facility] [Primary Care Provider] - 1-2 days
[2020-07-15 22:55] VITALS: BP 140/88; PULSE 104; RESP 20; TEMP 99
== END 2020-07-15 22:55 | disposition home or self-care (01) ==
LOC: EC 21:49
DX: L03.113 Cellulitis of right upper limb (principal); F17.200 Nicotine dependence, unspecified, uncomplicated; Z79.899 Other long term (current) drug therapy; Z88.5 Allergy status to narcotic agent
CPT/HCPCS: 99283; U0003

== ENCOUNTER 2020-07-17 15:09 | Emergency (ER) | payer OTHER ==
[2020-07-17 15:17] VITALS: TEMP 98.5
[2020-07-17] MEDS ORDERED: FAMOTIDINE 20 MG TAB PO STA (15:57)
[2020-07-17] MEDS ORDERED: CEPHALEXIN 500MG STARTER PACK 4 CAP BTL PO STA (15:57)
[2020-07-17] MEDS ORDERED: LORATADINE 10 MG TAB PO STA (15:57)
--- NOTE | 2020-07-17 15:59 | ED ---
Skin/Abscess/FB HPI - General Chief complaint: Skin/Abscess/Foreign Body Stated complaint: Rash/infection right arm/revisit Time Seen by Provider: 07/17/20 15:20 Source: patient Mode of arrival: ambulatory Limitations: no limitations - History of Present Illness Initial comments: 40-year-old female presenting for wound recheck. Patient states that she was initiated on antibiotics a few days ago for a possible infection at a tattoo site. pt denies increasing redness but now states she has red rasied itchy spot on the rgiht arm and back. pt denies fevers. denies chills, geneal malaise. pt was not sure if this was a reaction and presented to the ER. margarita lip tongue swelling or oral lesions. patient appears well nontoxic in no acute distress. - Related Data Home Medications Medication Instructions Recorded Confirmed D-Methorphan/PE/Acetaminophen 1 tab PO Q12H PRN 07/15/20 07/15/20 [Tylenol Cold Multi-Symp Caplet] Paxil (Unknown Strength) 1 tab PO DAILY 07/15/20 07/15/20 Vivitrol Injection 1 injection SQ DIRECTED PRN 07/15/20 07/15/20 Previous Rx's Medication Instructions Recorded Sulfamethox-Tmp 800-160Mg [Bactrim 2 each PO Q12HR #28 tab 07/15/20 Ds] Cephalexin [Keflex] 500 mg PO Q6HR 7 Days #28 cap 07/17/20 Allergies Allergy/AdvReac Type Severity Reaction Status Date / Time codeine AdvReac Nausea & Verified 07/17/20 15:16 Vomiting Review of Systems ROS Statement: Those systems with pertinent positive or pertinent negative responses have been documented in the HPI. ROS Other: All systems not noted in ROS Statement are negative. Past Medical History Past Medical History: Asthma Additional Past Medical History / Comment(s): OB history: 3 Vaginal deliveries, 2 voluntary terminations. History of Any Multi-Drug Resistant Organisms: None Reported Past Surgical History: Tubal Ligation Additional Past Surgical History / Comment(s): colonoscopy. corrective eye surgery as child. D&C x2 Past Psychological History: Anxiety, Bipolar, Depression, PTSD Smoking Status: Current every day smoker Past Alcohol Use History: None Reported Past Drug Use History: Marijuana General Exam - General Exam Comments Initial Comments: General: The patient is awake and alert, in no distress Eye: Pupils are equal, round and reactive to light, extra-ocular movements are intact. No nystagmus. There is normal conjunctiva bilaterally. No signs of icterus. Ears, nose, mouth and throat: There are moist mucous membranes and no oral lesions. Neck: The neck is supple, there is no tenderness or JVD. Cardiovascular: There is a regular rate and rhythm. No murmur, rub or gallop is appreciated. Respiratory: Lungs are clear to auscultation, respirations are non-labored, breath sounds are equal. No wheezes, stridor, rales, or rhonchi. Musculoskeletal: Normal ROM, no tenderness. Strength 5/5. Sensation intact. Pulses equal bilaterally 2+. Neurological: A&O x 3. CN II-XII intact grossly, There are no obvious motor or sensory deficits. Coordination appears grossly intact. Speech is normal. Skin: Skin is warm and dry. some m ild redness at both tattoo site, very localized, mild redness, no tracking (left forearm, right arm). there is on right arm and right upper back raised wheals, pt states they are itchy. Psychiatric: Cooperative, appropriate mood & affect, normal judgment. Limitations: no limitations Course Vital Signs 07/17/20 07/17/20 15:13 16:03 Temperature 98.5 F Pulse Rate 118 H 94 Respiratory 22 18 Rate Blood Pressure 155/93 145/92 O2 Sat by Pulse 96 97 Oximetry Medical Decision Making - Medical Decision Making 40-year-old presenting for new rash. urticaria on exam. I feel this is most consistent possible antibiotic reaction recommended discontinue the Bactrim patient will be started on Keflex. Patient appears to have a very mild cellulitis the site of tattoo versus expected local reaction. pt is afebrile. nontoxic appearing hr normalized after settling in ER (she states she was anxious). pt agreeable to care plan and discharge as is attending Dr. Molina. Disposition Clinical Impression: Urticaria Disposition: HOME SELF-CARE Condition: Good Instructions (If sedation given, give patient instructions): Urticaria (ED) Additional Instructions: Please use medication as discussed. Please follow-up with family doctor in the next 2 days. Please return to emergency room if the symptoms increase or worsen or for any other concerns. Prescriptions: Cephalexin [Keflex] 500 mg PO Q6HR 7 Days #28 cap Is patient prescribed a controlled substance at d/c from ED?: No Referrals: [facility] [Primary Care Provider] - 1-2 days Time of Disposition: 15:59
[2020-07-17 16:06] VITALS: BP 145/92; PULSE 94; RESP 18
== END 2020-07-17 16:01 | disposition home or self-care (01) ==
LOC: EC 15:09
DX: L50.9 Urticaria, unspecified (principal); F41.9 Anxiety disorder, unspecified; F32.9 Major depressive disorder, single episode, unspecified; F43.10 Post-traumatic stress disorder, unspecified; F17.200 Nicotine dependence, unspecified, uncomplicated; Z79.899 Other long term (current) drug therapy; Z88.5 Allergy status to narcotic agent
CPT/HCPCS: 99282

== ENCOUNTER 2020-08-03 19:24 | Emergency (ER) | payer OTHER ==
[2020-08-03] MEDS ORDERED: KETOROLAC 15 MG/ML 1 ML VIAL IM STA (19:41)
--- NOTE | 2020-08-03 19:57 | ED ---
Skin/Abscess/FB HPI - General Chief complaint: Skin/Abscess/Foreign Body Stated complaint: Injection Site Swelling Time Seen by Provider: 08/03/20 19:34 Source: patient Mode of arrival: ambulatory - History of Present Illness Initial comments: 40-year-old female patient presents to the emergency department today for evaluation of redness, pain, swelling to the right buttock. Patient had a visitor all injection about 3 weeks ago. States that she did have some redness and pain to the site but it has been worsening steadily. States that the area is now very hard to touch. States it is increasingly painful. She denies any fever or chills. Denies any drainage from the site. Patient states this is her second visit which all injection and the first one did something similar but not quite this bad. She has not been taking any medication for symptoms. Denies any rash, lip swelling, tongue swelling, throat swelling. Denies any difficulty breathing. Patient denies any recent cough, chest pain, abdominal pain, nausea, vomiting, diarrhea, constipation, back pain, numbness, tingling, dizziness, weakness, hematuria, dysuria, urinary urgency, urinary frequency, headache, visual changes, or any other complaints. - Related Data Home Medications Medication Instructions Recorded Confirmed D-Methorphan/PE/Acetaminophen 1 tab PO Q12H PRN 07/15/20 07/15/20 [Tylenol Cold Multi-Symp Caplet] Paxil (Unknown Strength) 1 tab PO DAILY 07/15/20 07/15/20 Vivitrol Injection 1 injection SQ DIRECTED PRN 07/15/20 07/15/20 Previous Rx's Medication Instructions Recorded Sulfamethox-Tmp 800-160Mg [Bactrim 2 each PO Q12HR #28 tab 07/15/20 Ds] Cephalexin [Keflex] 500 mg PO Q6HR 7 Days #28 cap 07/17/20 Cephalexin [Keflex] 500 mg PO Q6HR #40 cap 08/03/20 Ketorolac [Toradol] 10 mg PO Q6HR #12 tab 08/03/20 Allergies Allergy/AdvReac Type Severity Reaction Status Date / Time codeine AdvReac Nausea & Verified 07/17/20 15:16 Vomiting Review of Systems ROS Statement: Those systems with pertinent positive or pertinent negative responses have been documented in the HPI. ROS Other: All systems not noted in ROS Statement are negative. Past Medical History Past Medical History: Asthma Additional Past Medical History / Comment(s): OB history: 3 Vaginal deliveries, 2 voluntary terminations. hx etoh abuse History of Any Multi-Drug Resistant Organisms: None Reported Past Surgical History: Tubal Ligation Additional Past Surgical History / Comment(s): colonoscopy. corrective eye surgery as child. D&C x2 Past Psychological History: Anxiety, Bipolar, Depression, PTSD Smoking Status: Current every day smoker Past Alcohol Use History: None Reported Past Drug Use History: Marijuana General Exam General appearance: alert, in no apparent distress, other (This is a well- developed, well-nourished adult female patient in no acute distress. Vital signs upon presentation are temperature 98.9F oral, pulse 120, respirations 19, blood pressure 141/90, pulse ox 98% on room air.) Eye exam: Present: normal appearance, PERRL, EOMI. Absent: scleral icterus, conjunctival injection, periorbital swelling Respiratory exam: Present: normal lung sounds bilaterally. Absent: respiratory distress, wheezes, rales, rhonchi, stridor Cardiovascular Exam: Present: regular rate, normal rhythm, normal heart sounds. Absent: systolic murmur, diastolic murmur, rubs, gallop, clicks GI/Abdominal exam: Present: soft, normal bowel sounds. Absent: distended, tenderness, guarding, rebound, rigid Extremities exam: Present: full ROM, tenderness (Left buttock), normal capillary refill, other (There is [id number] area of redness and induration noted to the left buttock. Area is tender to touch. No fluctuance. No drainage.). Absent: normal inspection, pedal edema, joint swelling, calf tenderness Neurological exam: Present: alert, oriented X3, CN II-XII intact Psychiatric exam: Present: normal affect, normal mood Skin exam: Present: warm, dry, intact, normal color. Absent: rash Course Vital Signs 08/03/20 19:30 Temperature 98 F Pulse Rate 120 H Respiratory 19 Rate Blood Pressure 141/90 O2 Sat by Pulse 98 Oximetry Medical Decision Making - Medical Decision Making 40 year-old female patient presents to the emergency department for evaluation of redness, firmness, swelling, and pain to the left buttock. States that she had a vivitrol injection 3 weeks ago and pain and symptoms have been worsening since. She did have similar but more mild reaction to her first injection. Physical examination did reveal 10 cm area of induration, erythema, and warmth to the left buttock. Ultrasound was obtained and showed no fluid collection concerning for abscess. She is having no systemic symptoms. We did discuss possibilities of medication reaction vs infection like cellulitis. She is discharged on Keflex. Instructed to apply warm compresses. She'll be given prescription for pain medication. She is instructed to follow-up with the primary care physician and the prescribing physician for further evaluation. She is having an appointment on Wednesday. Return parameters were discussed in detail. She verbalizes understanding and agrees with this plan. Disposition Clinical Impression: Cellulitis, Injection site reaction Disposition: HOME SELF-CARE Condition: Good Instructions (If sedation given, give patient instructions): Cellulitis (ED) Additional Instructions: Apply warm compresses over the area. Complete antibiotic prescription in full. Follow-up with your prescribing physician to determine safe use of this medication future. Take medications as needed for pain control. Return to the emergency department for any new, worsening, or concerning symptoms. Prescriptions: Cephalexin [Keflex] 500 mg PO Q6HR #40 cap Ketorolac [Toradol] 10 mg PO Q6HR #12 tab Is patient prescribed a controlled substance at d/c from ED?: No Referrals: [facility] [Primary Care Provider] - 1-2 days Time of Disposition: 20:49
--- NOTE | 2020-08-03 20:18 | US ---
EXAMINATION TYPE: US extremity nonvasc mass RT DATE OF EXAM: 08/03/2020 COMPARISON: NONE CLINICAL HISTORY: Right buttock abscess?. Pt states recent injection into right buttock, now having r edness and pain at injection site right buttock scanned in area of redness and pain / there is soft tissue edema, no sizeable fluid collection is visualized IMPRESSION: There is evidence of subcutaneous edema. There is no evidence of an abscess.
[2020-08-03] MEDS ORDERED: CEPHALEXIN 500MG STARTER PACK 4 CAP BTL PO STA (20:48)
[2020-08-03 21:06] VITALS: BP 145/88; PULSE 97; RESP 18; TEMP 98.3
== END 2020-08-03 21:06 | disposition home or self-care (01) ==
LOC: EC 19:24
DX: T80.89XA Other complications following infusion, transfusion and therapeutic injection, initial encounter (principal); L03.317 Cellulitis of buttock; F41.9 Anxiety disorder, unspecified; F32.9 Major depressive disorder, single episode, unspecified; F43.10 Post-traumatic stress disorder, unspecified; F17.200 Nicotine dependence, unspecified, uncomplicated; Z79.899 Other long term (current) drug therapy; Z88.5 Allergy status to narcotic agent
CPT/HCPCS: 99283; 96372; 76882; J1885

== ENCOUNTER 2020-12-27 02:32 | Emergency (ER) | payer OTHER ==
[2020-12-27 02:40] VITALS: TEMP 98.2
[2020-12-27] MEDS ORDERED: SODIUM CHLORIDE 0.9% 1,000 ML IV STA (02:51)
[2020-12-27] MEDS ORDERED: MORPHINE SULFATE 4 MG/ML SYRINGE IV STA (02:51)
--- NOTE | 2020-12-27 02:52 | ED ---
Abdominal Pain HPI - General Chief Complaint: Abdominal Pain Stated Complaint: Lower abdominal pain Time Seen by Provider: 12/27/20 02:51 Source: patient, family, RN notes reviewed, old records reviewed Mode of arrival: ambulatory Limitations: no limitations - History of Present Illness Initial Comments: This is a 40-year-old female DF for evaluation regards to severe abdominal pain. Denying sexual intercourse tonight patient began to experience severe abdominal pain. Patient had immediate pain 1 starting sexual intercourse MD Complaint: abdominal pain -: hour(s) Location: suprapubic Radiation: suprapubic Migration to: suprapubic Severity: severe Quality: stabbing, sharp Consistency: constant Improves With: nothing Worsens With: movement Context: other Associated Symptoms: nausea - Related Data Home Medications Medication Instructions Recorded Confirmed D-Methorphan/PE/Acetaminophen 1 tab PO Q12H PRN 07/15/20 07/15/20 [Tylenol Cold Multi-Symp Caplet] Paxil (Unknown Strength) 1 tab PO DAILY 07/15/20 07/15/20 Vivitrol Injection 1 injection SQ DIRECTED PRN 07/15/20 07/15/20 Previous Rx's Medication Instructions Recorded Sulfamethox-Tmp 800-160Mg [Bactrim 2 each PO Q12HR #28 tab 07/15/20 Ds] Cephalexin [Keflex] 500 mg PO Q6HR 7 Days #28 cap 07/17/20 Ketorolac [Toradol] 10 mg PO Q6HR #12 tab 08/03/20 cephALEXin [Keflex] 500 mg PO Q6HR #40 cap 08/03/20 Allergies Allergy/AdvReac Type Severity Reaction Status Date / Time codeine AdvReac Nausea & Verified 12/27/20 02:40 Vomiting Review of Systems ROS Statement: Those systems with pertinent positive or pertinent negative responses have been documented in the HPI. ROS Other: All systems not noted in ROS Statement are negative. Past Medical History Past Medical History: Asthma Additional Past Medical History / Comment(s): OB history: 3 Vaginal deliveries, 2 voluntary terminations. hx etoh abuse History of Any Multi-Drug Resistant Organisms: None Reported Past Surgical History: Tubal Ligation Additional Past Surgical History / Comment(s): colonoscopy. corrective eye surgery as child. D&C x2 Past Psychological History: Anxiety, Bipolar, Depression, PTSD Smoking Status: Current every day smoker Past Alcohol Use History: Occasional Past Drug Use History: Marijuana General Exam Limitations: no limitations General appearance: alert, in no apparent distress Head exam: Present: atraumatic, normocephalic, normal inspection Eye exam: Present: normal appearance, PERRL, EOMI. Absent: scleral icterus, conjunctival injection, periorbital swelling ENT exam: Present: normal exam, mucous membranes moist Neck exam: Present: normal inspection. Absent: tenderness, meningismus, lymphadenopathy Respiratory exam: Present: normal lung sounds bilaterally. Absent: respiratory distress, wheezes, rales, rhonchi, stridor Cardiovascular Exam: Present: regular rate, normal rhythm, normal heart sounds. Absent: systolic murmur, diastolic murmur, rubs, gallop, clicks GI/Abdominal exam: Present: soft, normal bowel sounds. Absent: distended, tenderness, guarding, rebound, rigid Extremities exam: Present: normal inspection, full ROM, normal capillary refill. Absent: tenderness, pedal edema, joint swelling, calf tenderness Back exam: Present: normal inspection Neurological exam: Present: alert, oriented X3, CN II-XII intact Psychiatric exam: Present: normal affect, normal mood Skin exam: Present: warm, dry, intact, normal color. Absent: rash Course Vital Signs 12/27/20 12/27/20 02:35 04:40 Temperature 98.2 F Pulse Rate 125 H 81 Respiratory 24 18 Rate Blood Pressure 145/87 129/75 O2 Sat by Pulse 100 98 Oximetry - Reevaluation(s) Reevaluation #1: 12/27/20 03:01 Medical records reviewed Medical Decision Making - Lab Data Result diagrams: 12/27/20 03:01 12/27/20 03:01 Lab Results 12/27/20 12/27/20 12/27/20 Range/Units 03:01 03:01 03:01 WBC 7.7 (3.8-10.6) k/uL RBC 4.51 (3.80-5.40) m/uL Hgb 14.2 (11.4-16.0) gm/dL Hct 41.9 (34.0-46.0) % MCV 92.9 (80.0-100.0) fL MCH 31.6 (25.0-35.0) pg MCHC 34.0 (31.0-37.0) g/dL RDW 12.8 (11.5-15.5) % Plt Count 205 (150-450) k/uL MPV 8.1 Neutrophils % 66 % Lymphocytes % 25 % Monocytes % 5 % Eosinophils % 2 % Basophils % 0 % Neutrophils # 5.1 (1.3-7.7) k/uL Lymphocytes # 1.9 (1.0-4.8) k/uL Monocytes # 0.4 (0-1.0) k/uL Eosinophils # 0.2 (0-0.7) k/uL Basophils # 0.0 (0-0.2) k/uL PT 9.5 (9.0-12.0) sec INR 0.9 (<1.2) APTT 22.6 (22.0-30.0) sec Sodium (137-145) mmol/L Potassium (3.5-5.1) mmol/L Chloride (98-107) mmol/L Carbon Dioxide (22-30) mmol/L Anion Gap mmol/L BUN (7-17) mg/dL Creatinine (0.52-1.04) mg/dL Est GFR (CKD-EPI)AfAm (>60 ml/min/1.73 sqM) Est GFR (CKD-EPI)NonAf (>60 ml/min/1.73 sqM) Glucose (74-99) mg/dL Plasma Lactic Acid Robson (0.7-2.0) mmol/L Calcium (8.4-10.2) mg/dL Total Bilirubin (0.2-1.3) mg/dL AST (14-36) U/L ALT (4-34) U/L Alkaline Phosphatase (38-126) U/L Total Protein (6.3-8.2) g/dL Albumin (3.5-5.0) g/dL Amylase (30-110) U/L Lipase (23-300) U/L Urine Color Colorless Urine Appearance Clear (Clear) Urine pH 7.0 (5.0-8.0) Ur Specific [place] 1.004 (1.001-1.035) Urine Protein Negative (Negative) Urine Glucose (UA) Negative (Negative) Urine Ketones Negative (Negative) Urine Blood Negative (Negative) Urine Nitrite Negative (Negative) Urine Bilirubin Negative (Negative) Urine Urobilinogen <2.0 (<2.0) mg/dL Ur Leukocyte Esterase Negative (Negative) 12/27/20 12/27/20 Range/Units 03:01 03:01 WBC (3.8-10.6) k/uL RBC (3.80-5.40) m/uL Hgb (11.4-16.0) gm/dL Hct (34.0-46.0) % MCV (80.0-100.0) fL MCH (25.0-35.0) pg MCHC (31.0-37.0) g/dL RDW (11.5-15.5) % Plt Count (150-450) k/uL MPV Neutrophils % % Lymphocytes % % Monocytes % % Eosinophils % % Basophils % % Neutrophils # (1.3-7.7) k/uL Lymphocytes # (1.0-4.8) k/uL Monocytes # (0-1.0) k/uL Eosinophils # (0-0.7) k/uL Basophils # (0-0.2) k/uL PT (9.0-12.0) sec INR (<1.2) APTT (22.0-30.0) sec Sodium 136 L (137-145) mmol/L Potassium 4.3 (3.5-5.1) mmol/L Chloride 106 (98-107) mmol/L Carbon Dioxide 24 (22-30) mmol/L Anion Gap 6 mmol/L BUN 10 (7-17) mg/dL Creatinine 0.64 (0.52-1.04) mg/dL Est GFR (CKD-EPI)AfAm >90 (>60 ml/min/1.73 sqM) Est GFR (CKD-EPI)NonAf >90 (>60 ml/min/1.73 sqM) Glucose 109 H (74-99) mg/dL Plasma Lactic Acid Robson 1.0 (0.7-2.0) mmol/L Calcium 10.0 (8.4-10.2) mg/dL Total Bilirubin 0.2 (0.2-1.3) mg/dL AST 25 (14-36) U/L ALT 23 (4-34) U/L Alkaline Phosphatase 69 (38-126) U/L Total Protein 6.9 (6.3-8.2) g/dL Albumin 4.1 (3.5-5.0) g/dL Amylase 42 (30-110) U/L Lipase 53 (23-300) U/L Urine Color Urine Appearance (Clear) Urine pH (5.0-8.0) Ur Specific [place] (1.001-1.035) Urine Protein (Negative) Urine Glucose (UA) (Negative) Urine Ketones (Negative) Urine Blood (Negative) Urine Nitrite (Negative) Urine Bilirubin (Negative) Urine Urobilinogen (<2.0) mg/dL Ur Leukocyte Esterase (Negative) Disposition Clinical Impression: Abdominal pain, Ovarian cyst Disposition: HOME SELF-CARE Condition: Good Instructions (If sedation given, give patient instructions): Abdominal Pain (ED), Ovarian Cyst (ED), Ruptured Ovarian Cyst (ED) Is patient prescribed a controlled substance at d/c from ED?: No Referrals: [facility] [NON-STAFF] - 1-2 days
[2020-12-27 04:08] LABS: Basophils % (A) 0 %; Eosinophils # (A) 0.2 k/uL (0-0.7); Eosinophils % (A) 2 %; HCT 41.9 % (34.0-46.0); HGB 14.2 gm/dL (11.4-16.0); Lymphocytes # (A) 1.9 k/uL (1.0-4.8); Lymphocytes % (A) 25 %; MCH 31.6 pg (25.0-35.0); MCV 92.9 fL (80.0-100.0); Mean Platelet Volume 8.1; Monocytes # (A) 0.4 k/uL (0-1.0); Monocytes % (A) 5 %; Neutrophils # (A) 5.1 k/uL (1.3-7.7); Neutrophils % (A) 66 %; Platelet Count 205 k/uL (150-450); RBC 4.51 m/uL (3.80-5.40); RDW 12.8 % (11.5-15.5); WBC 7.7 k/uL (3.8-10.6)
[2020-12-27 04:15] LABS: Appearance,Urine Clear (Clear); Bilirubin,Urine Negative (Negative); Blood,Urine Negative (Negative); Color,Urine Colorless; Glucose,Urine (UA) Negative (Negative); Ketones,Urine Negative (Negative); Leukocyte Esterase,Urine Negative (Negative); Nitrite,Urine Negative (Negative); Protein,Urine Negative (Negative); Specific Gravity,Urine 1.004 (1.001-1.035); Urobilinogen,Urine <2.0 mg/dL (<2.0)
[2020-12-27 04:18] LABS: INR 0.9 (<1.2); Partial Thromboplastin Time 22.6 sec (22.0-30.0); Prothrombin Time 9.5 sec (9.0-12.0)
[2020-12-27 04:22] LABS: ALT 23 U/L (4-34); AST 25 U/L (14-36); African American GFR (CKD) >90 (>60 ml/min/1.73 sqM); Albumin 4.1 g/dL (3.5-5.0); Alkaline Phosphatase 69 U/L (38-126); Amylase 42 U/L (30-110); Anion Gap 6 mmol/L; Blood Urea Nitrogen 10 mg/dL (7-17); Carbon Dioxide 24 mmol/L (22-30); Chloride 106 mmol/L (98-107); Glucose 109 mg/dL (74-99); Lipase 53 U/L (23-300); Non-African American GFR(CKD) >90 (>60 ml/min/1.73 sqM); Potassium 4.3 mmol/L (3.5-5.1); Sodium 136 mmol/L (137-145); Total Bilirubin 0.2 mg/dL (0.2-1.3); Total Protein 6.9 g/dL (6.3-8.2)
[2020-12-27 04:42] VITALS: BP 129/75; PULSE 81; RESP 18
--- NOTE | 2020-12-27 04:53 | CT ---
EXAM: CT Abdomen and Pelvis With Intravenous Contrast CLINICAL HISTORY: PT was having intercourse when felt a sharp stabbing pain Lower abd pain when urinating has prior cyst HX was afraid one ruptured per RN Alyssa TECHNIQUE: Axial computed tomography images of the abdomen and pelvis with intravenous contrast. CTDI is 41.2 mGy and DLP is 1682.1 mGy-cm. This CT exam was performed using one or more of the following dose reduction techniques: automated exposure control, adjustment of the mA and/or kV according to patient size, and/or use of iterative reconstruction technique. Coronal and sagittal reformatted images were created and reviewed. COMPARISON: 04/03/19 FINDINGS: Lung bases: Unremarkable. No mass. No consolidation. ABDOMEN: Liver: Unremarkable. No mass. Gallbladder and bile ducts: Unremarkable. No calcified stones. No ductal dilation. Pancreas: Unremarkable. No mass. No ductal dilation. Spleen: Unremarkable. No splenomegaly. Adrenals: Unremarkable. No mass. Kidneys and ureters: Unremarkable. No solid mass. No hydronephrosis. Stomach and bowel: Unremarkable. No obstruction. No mucosal thickening. PELVIS: Appendix: Normal appendix. Bladder: Unremarkable. No mass. Reproductive: 2 cm left ovarian cyst or follicle. ABDOMEN and PELVIS: Intraperitoneal space: No significant free pelvic fluid. No free air. Bones/joints: No acute fracture. No dislocation. Soft tissues: Stranding in subcutaneous fat over bilateral buttocks, larger on the right, may suggest contusion versus injection sites. Vasculature: Unremarkable. No abdominal aortic aneurysm. Lymph nodes: Unremarkable. No enlarged lymph nodes. IMPRESSION: 2 cm left ovarian cyst or follicle.
[2020-12-27] MEDS ORDERED: traMADol 50 MG STARTER PACK 3 TAB BTL PO STA (05:05)
[2020-12-27] MEDS ORDERED: KETOROLAC 15 MG/ML 1 ML VIAL IVP STA (05:05)
[2020-12-27] MEDS ORDERED: MORPHINE SULFATE 4 MG/ML SYRINGE IVP STA (05:05)
== END 2020-12-27 05:45 | disposition home or self-care (01) ==
LOC: EC 02:32
DX: N83.202 Unspecified ovarian cyst, left side (principal); J45.909 Unspecified asthma, uncomplicated; F32.9 Major depressive disorder, single episode, unspecified; F17.200 Nicotine dependence, unspecified, uncomplicated; F12.90 Cannabis use, unspecified, uncomplicated; Z90.09 Acquired absence of other part of head and neck
CPT/HCPCS: 36415; 80053; 82150; 83605; 83690; 85025; 85610; 85730; 81003; 74177; 99284; 96374; 96375; 96376; 96361; J2270; J1885; Q9967

== ENCOUNTER 2021-01-02 14:04 | Emergency (ER) | payer OTHER ==
[2021-01-02 14:55] VITALS: BP 156/94; PULSE 102; RESP 20; TEMP 98.1
[2021-01-02] MEDS ORDERED: ACET/COD 300 MG/30 MG STARTER PACK 6 TAB BTL PO STA (15:18)
[2021-01-02] MEDS ORDERED: KETOROLAC 15 MG/ML 1 ML VIAL IM STA (15:18)
--- NOTE | 2021-01-02 15:20 | ED ---
ENT HPI - General Chief complaint: ENT Stated complaint: jaw pain Time Seen by Provider: 01/02/21 15:06 Source: patient Mode of arrival: ambulatory Limitations: no limitations - History of Present Illness Initial comments: Patient is a 40-year-old female presenting to the emergency Department with complaints of right jaw pain over the last 2-3 days. Patient states she has had issues with her jaw in the past, history of TMJ. She states she was chewing on something hard 3 days ago when she felt it lock up and slipped a little bit. Ever since then she's been having increasing pain. She states she did go to urgent care before this, they recommended anti-inflammatory as well as baclofen however she states she's continue to have pain. She denies any tooth pain, no history of dental abscesses, no fevers or chills. She has no further complaints at this time. - Related Data Home Medications Medication Instructions Recorded Confirmed D-Methorphan/PE/Acetaminophen 1 tab PO Q12H PRN 07/15/20 07/15/20 [Tylenol Cold Multi-Symp Caplet] Paxil (Unknown Strength) 1 tab PO DAILY 07/15/20 07/15/20 Vivitrol Injection 1 injection SQ DIRECTED PRN 07/15/20 07/15/20 Previous Rx's Medication Instructions Recorded Sulfamethox-Tmp 800-160Mg [Bactrim 2 each PO Q12HR #28 tab 07/15/20 Ds] Cephalexin [Keflex] 500 mg PO Q6HR 7 Days #28 cap 07/17/20 Ketorolac [Toradol] 10 mg PO Q6HR #12 tab 08/03/20 cephALEXin [Keflex] 500 mg PO Q6HR #40 cap 08/03/20 Allergies Allergy/AdvReac Type Severity Reaction Status Date / Time codeine AdvReac Nausea & Verified 01/02/21 14:55 Vomiting Review of Systems ROS Statement: Those systems with pertinent positive or pertinent negative responses have been documented in the HPI. ROS Other: All systems not noted in ROS Statement are negative. Past Medical History Past Medical History: Asthma Additional Past Medical History / Comment(s): OB history: 3 Vaginal deliveries, 2 voluntary terminations. hx etoh abuse History of Any Multi-Drug Resistant Organisms: None Reported Past Surgical History: Tubal Ligation Additional Past Surgical History / Comment(s): colonoscopy. corrective eye surgery as child. D&C x2 Past Psychological History: Anxiety, Bipolar, Depression, PTSD Smoking Status: Current every day smoker Past Alcohol Use History: Occasional Past Drug Use History: Marijuana General Exam - General Exam Comments Initial Comments: GENERAL: Patient is well-developed and well-nourished. Patient is nontoxic and in no acute distress. HEAD: Atraumatic, normocephalic. EYES: Pupils equal round and reactive to light, extraocular movements intact, sclera anicteric, conjunctiva are normal. Eyelids were unremarkable. ENT: TMs normal, nares patent, oropharynx clear without exudates. Moist mucous membranes. Patient has tenderness over the right TMJ, she is able to open and close mouth with some discomfort. No evidence of dislocation. No swelling, no erythema, no pain with any of the teeth. No dental abscess noted. NECK: Normal range of motion, supple without lymphadenopathy or JVD. LUNGS: Unlabored respirations. Breath sounds clear to auscultation bilaterally and equal. No wheezes rales or rhonchi. HEART: Regular rate and rhythm without murmurs, rubs or gallops. ABDOMEN: Soft, nontender, normoactive bowel sounds. No guarding, no rebound. No masses appreciated. : Deferred MUSCULOSKELETAL: Normal extremities with adequate strength and normal range of motion, no pitting or edema. No clubbing or cyanosis. NEUROLOGICAL: Patient is alert and oriented x 3. SKIN: Warm, Dry, normal turgor, no rashes or lesions noted. Limitations: no limitations Course Vital Signs 01/02/21 14:53 Temperature 98.1 F Pulse Rate 102 H Respiratory 20 Rate Blood Pressure 156/94 O2 Sat by Pulse 99 Oximetry Medical Decision Making - Medical Decision Making Patient is a 40-year-old female here with right jaw discomfort with past 3 days. She does have history of TMJ. No signs of a dental abscess, no tooth pain. I do feel like this is a flareup of TMJ. I recommend doing soft foods over the next few days, Tylenol for discomfort. I will give her shot of Toradol today and a few Tylenol 3's to go home with. She will follow-up with her doctor as well as possible and ENT specialty this. Patient is in agreement with this plan of care and she is stable for discharge. Disposition Clinical Impression: Right temporomandibular joint disorder, unspecified Disposition: HOME SELF-CARE Condition: Stable Instructions (If sedation given, give patient instructions): Temporomandibular Disorder (ED) Additional Instructions: Please return to the Emergency Department if symptoms worsen or any other concerns. Recommend Tylenol for discomfort, trial of Aleve. Ice to the area. Soft foods for the next few days. Follow up with your oral surgeon as discussed. Is patient prescribed a controlled substance at d/c from ED?: No Referrals: Debora Landers MD [Primary Care Provider] - 1-2 days Time of Disposition: 15:26
== END 2021-01-02 15:33 | disposition home or self-care (01) ==
LOC: EC 14:04
DX: M26.601 Right temporomandibular joint disorder, unspecified (principal); J45.909 Unspecified asthma, uncomplicated; F31.9 Bipolar disorder, unspecified; F41.9 Anxiety disorder, unspecified; F17.200 Nicotine dependence, unspecified, uncomplicated; F12.90 Cannabis use, unspecified, uncomplicated
CPT/HCPCS: 99283; 96372; J1885

== ENCOUNTER 2021-10-08 10:08 | Emergency (ER) | payer OTHER ==
[2021-10-08 10:12] VITALS: BP 135/85; PULSE 75; RESP 18; TEMP 97.7
[2021-10-08] MEDS ORDERED: KETOROLAC 15 MG/ML 1 ML VIAL IM STA (10:20)
--- NOTE | 2021-10-08 10:33 | ED ---
General Adult HPI - General Chief complaint: Extremity Injury, Lower Stated complaint: Fall/Rt Knee Injury Time Seen by Provider: 10/08/21 10:14 Source: patient, family Mode of arrival: wheelchair Limitations: no limitations - History of Present Illness Initial comments: This 41-year-old female presents emergency Department with right knee, ankle and foot pain after a fall this morning. Patient states she was walking outside at about 8 AM and she slipped on ice, twisting her ankle and falling directly onto her right knee. Patient denies any signs of knee dislocation. Patient denies any signs of patellar dislocation. Patient states she has not had trauma or broken any bones of the right leg before, however she did break her left ankle as child. Patient denies taking any medications to help the pain. Patient states she is able to walk, however causes extreme pain to the outside of her ankle along with the front of her knee. Patient denies being on any blood thinning medication and denies hitting her head. She denies any loss of consciousness. Patient denies any back pain, neck pain or fever. Patient denies any radicular pain, loss of sensation or loss of range of motion of the right leg, however when she moves her ankle, foot or knee does cause painful area. Patient denies any chest pain, shortness of breath, abdominal pain, nausea vomiting, headache and lightheadedness, dizziness, change in bowel or bladder change in appetite. - Related Data Home Medications Medication Instructions Recorded Confirmed No Known Home Medications 10/08/21 10/08/21 Allergies Allergy/AdvReac Type Severity Reaction Status Date / Time codeine AdvReac Nausea & Verified 10/08/21 11:11 Vomiting Review of Systems ROS Statement: Those systems with pertinent positive or pertinent negative responses have been documented in the HPI. ROS Other: All systems not noted in ROS Statement are negative. Past Medical History Past Medical History: Asthma Additional Past Medical History / Comment(s): OB history: 3 Vaginal deliveries, 2 voluntary terminations. hx etoh abuse History of Any Multi-Drug Resistant Organisms: None Reported Past Surgical History: Tubal Ligation Additional Past Surgical History / Comment(s): colonoscopy. corrective eye surgery as child. D&C x2 Past Psychological History: Anxiety, Bipolar, Depression, PTSD Smoking Status: Current every day smoker Past Alcohol Use History: Occasional Past Drug Use History: Marijuana General Exam Limitations: no limitations General appearance: alert, in no apparent distress Head exam: Present: atraumatic, normocephalic, normal inspection Eye exam: Present: normal appearance, PERRL, EOMI. Absent: scleral icterus, conjunctival injection, periorbital swelling ENT exam: Present: normal exam, mucous membranes moist Neck exam: Present: normal inspection, full ROM. Absent: tenderness, meningismus, lymphadenopathy Respiratory exam: Present: normal lung sounds bilaterally. Absent: respiratory distress, wheezes, rales, rhonchi, stridor Cardiovascular Exam: Present: regular rate, normal rhythm, normal heart sounds. Absent: systolic murmur, diastolic murmur, rubs, gallop, clicks GI/Abdominal exam: Present: soft, normal bowel sounds. Absent: distended, tenderness, guarding, rebound, rigid Extremities exam: Present: full ROM (Patient able to rotate ankle and cervical, however does cause her pain. Full sensation in right leg, ankle and foot. DP pulses palpable. No erythema or warmth of right leg, ankle or foot), normal ca pillary refill, other (Patient with abrasion to right knee. Patient unable to bend right knee pain. Patient with pain to palpation over the lateral and medial sides of right knee. Patient with pain over third and fourth metatarsal bones. Patient with pain to the lateral malleolus along with mild swelling. ). Absent: calf tenderness Back exam: Present: normal inspection, full ROM. Absent: CVA tenderness (R), CVA tenderness (L), paraspinal tenderness, vertebral tenderness Neurological exam: Present: alert, oriented X3, CN II-XII intact. Absent: normal gait (Patient is able walk, however she does limp slightly due to right knee and ankle pain) Psychiatric exam: Present: normal affect, normal mood Skin exam: Present: warm, dry, intact, normal color. Absent: rash Course Vital Signs 10/08/21 10:08 Temperature 97.7 F Pulse Rate 75 Respiratory 18 Rate Blood Pressure 135/85 O2 Sat by Pulse 95 Oximetry Medical Decision Making - Medical Decision Making This 41-year-old female presents to emergency department after a fall with right knee pain, right lateral ankle pain and right third and fourth metatarsal pain. X-rays without any acute abnormalities, dislocation or fractures visualized. Patient given Toradol shot here and that her pain slightly decrease. Polo bandage applied to right knee, air splint applied to right ankle. Patient instructed to follow up with her primary care provider in orthopedics in the next 24-48 hours. Patient instructed to rest, ice and elevate right leg and ankle. Strict return precautions were discussed. Patient verbally agreed to plan. Patient sent home in stable condition. Case discussed in detail with my attending, Dr. Murphy. - Radiology Data Radiology results: report reviewed, image reviewed Disposition Clinical Impression: Right knee sprain, Right ankle sprain Disposition: HOME SELF-CARE Condition: Stable Instructions (If sedation given, give patient instructions): Ankle Sprain (ED), Knee Sprain (ED) Additional Instructions: Follow-up with her primary care provider next 24-48 hours. Return to the emergency department with any new, worsening or concerning symptoms. Rest, ice, and elevate right knee, ankle, and foot. Is patient prescribed a controlled substance at d/c from ED?: No Referrals: Debora Landers MD [Primary Care Provider] - 1-2 days Mikal Veronica MD [Medical Doctor] - 1-2 days Time of Disposition: 11:19
--- NOTE | 2021-10-08 10:53 | XR ---
EXAMINATION TYPE: XR ankle complete RT, XR foot complete RT DATE OF EXAM: 10/08/2021 CLINICAL HISTORY: Fall injury with pain TECHNIQUE: Frontal, lateral and oblique images of the right ankle and foot are obtained. COMPARISON: Prior right ankle x-ray May 29, 2015. Right foot x-ray arch 28/02/2019 FINDINGS: There is no acute fracture/dislocation evident in the right ankle. The ankle mortise appe ars within normal limits. Tiny inferior calcaneal spur noted. The overlying soft tissue appears unre markable. There is no acute fracture or dislocation evident in the right foot. The joint spaces in the right f oot are preserved. Flexion in the toes is seen. Overlying soft tissue is unremarkable. IMPRESSION: There is no acute fracture or dislocation in the right ankle or foot.
--- NOTE | 2021-10-08 10:55 | XR ---
EXAMINATION TYPE: XR knee complete RT DATE OF EXAM: 10/08/2021 CLINICAL HISTORY: Fall injury with pain TECHNIQUE: Three views of the right knee are obtained. COMPARISON: Right knee x-ray October 06, 2018. FINDINGS: There is no acute fracture/dislocation evident in right knee. There is mild narrowing p atellofemoral and medial tibiofemoral compartments redemonstrated. The overlying soft tissue appears unremarkable. IMPRESSION: There is no acute fracture or dislocation in the right knee. No significant change from prior.
== END 2021-10-08 11:47 | disposition home or self-care (01) ==
LOC: EC 10:08
DX: S83.91XA Sprain of unspecified site of right knee, initial encounter (principal); S93.401A Sprain of unspecified ligament of right ankle, initial encounter; J45.909 Unspecified asthma, uncomplicated; F41.9 Anxiety disorder, unspecified; F31.9 Bipolar disorder, unspecified; F43.10 Post-traumatic stress disorder, unspecified; F17.200 Nicotine dependence, unspecified, uncomplicated; F12.90 Cannabis use, unspecified, uncomplicated; Z88.5 Allergy status to narcotic agent; Z98.51 Tubal ligation status; W00.0XXA Fall on same level due to ice and snow, initial encounter
CPT/HCPCS: 99283; 96372; 73562; 73610; 73630; L4350; J1885

== ENCOUNTER 2022-02-11 16:57 | Emergency (ER) | payer OTHER ==
[2022-02-11 17:29] VITALS: BP 179/100; PULSE 110; RESP 16; TEMP 98.5
--- NOTE | 2022-02-11 17:56 | XR ---
EXAMINATION TYPE: XR finger RT DATE OF EXAM: 02/11/2022 COMPARISON: NONE HISTORY: Trauma. Pain TECHNIQUE: 3 views FINDINGS: There is nondisplaced fracture of the tuft of the distal phalanx of the middle finger right hand. No dislocation. Joint spaces are normal. IMPRESSION: Tuft fracture distal phalanx of the middle finger right hand.
--- NOTE | 2022-02-11 18:04 | ED ---
Upper Extremity HPI - General Chief Complaint: Extremity Injury, Upper Stated Complaint: Finger Injury Time Seen by Provider: 02/11/22 17:37 Source: patient Mode of arrival: ambulatory Limitations: no limitations - History of Present Illness Initial Comments: Patient is a 41-year-old female who presents to the emergency department with a chief complaint of pain at the tip of her right middle finger. 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 Patient endorses severe pain at the tip of her right middle finger which she states is not getting better. States the pain is refractory to Tylenol and Motrin. Does admit to tingling of the tip of her finger. Denies numbness. - Related Data Previous Rx's Medication Instructions Recorded HYDROcodone/APAP 7.5-325MG [[place] 1 tab PO Q4HR PRN 3 Days #18 tab 02/11/22 7.5-325] Allergies Allergy/AdvReac Type Severity Reaction Status Date / Time codeine AdvReac Nausea & Verified 02/11/22 17:28 Vomiting Review of Systems ROS Statement: Those systems with pertinent positive or pertinent negative responses have been documented in the HPI. ROS Other: All systems not noted in ROS Statement are negative. Past Medical History Past Medical History: Asthma Additional Past Medical History / Comment(s): OB history: 3 Vaginal deliveries, 2 voluntary terminations. hx etoh abuse History of Any Multi-Drug Resistant Organisms: None Reported Past Surgical History: Tubal Ligation Additional Past Surgical History / Comment(s): colonoscopy. corrective eye surgery as child. D&C x2 Past Psychological History: Anxiety, Bipolar, Depression, PTSD Smoking Status: Current every day smoker Past Alcohol Use History: Occasional Past Drug Use History: Marijuana General Exam Limitations: no limitations General appearance: alert, in no apparent distress Head exam: Present: atraumatic, normocephalic, normal inspection Eye exam: Present: normal appearance, PERRL, EOMI. Absent: scleral icterus, conjunctival injection, periorbital swelling Respiratory exam: Present: normal lung sounds bilaterally. Absent: respiratory distress, wheezes, rales, rhonchi, stridor Cardiovascular Exam: Present: regular rate, normal rhythm, normal heart sounds. Absent: systolic murmur, diastolic murmur, rubs, gallop, clicks Right Hand Wrist exam: Present: normal inspection, full ROM, tenderness (distal right middle finger ). Absent: swelling, abrasion, laceration, ecchymosis, deformity, crepitus, dislocation, erythema, subungual hematoma Neuro motor exam: Present: wrist extension intact, thumb opposition intact, thumb IP flexion intact, thumb adduction intact, fingers 2-5 abduction intact Neurosensory exam: Present: 2-point discrimination, radial nerve intact, ulnar nerve intact, median nerve intact Vascular: Present: normal capillary refill. Absent: vascular compromise Neurological exam: Present: alert, oriented X3, CN II-XII intact Psychiatric exam: Present: normal affect, normal mood Course Vital Signs 02/11/22 17:27 Temperature 98.5 F Pulse Rate 110 H Respiratory 16 Rate Blood Pressure 179/100 O2 Sat by Pulse 98 Oximetry Procedures - Orthopedic Splinting/Casting Injury #1 Side: right Upper Extremity Injury Location: finger (right middle) Upper Extremity Immobilizer: aluminum form splint, damari tape Medical Decision Making - Medical Decision Making This is a 41-year-old female who presents for evaluation of right middle finger injury. Thorough history and examination were performed. There is tenderness over the distal right middle finger without overlying erythema, swelling, or deformity. No laceration or abrasion. Neurovascularly intact. Full range of motion. Right hand x-ray shows a tuft fracture of the distal phalanx of the middle finger of the right hand. Results discussed with patient. The middle finger was placed in an aluminum form splint. The finger was damari taped. Patient will remain in splint until orthopedic evaluation. I will send her home with a short course of [place] for severe pain since Tylenol and Motrin did not help her pain. Dr. Bennett is my attending. Disposition Clinical Impression: Closed fracture of tuft of distal phalanx of finger Disposition: HOME SELF-CARE Condition: Good Instructions (If sedation given, give patient instructions): Finger Fracture (ED) Additional Instructions: Take medication as instructed. Please keep splint on until orthopedic evaluation.Schedule an appointment with marketing project specialist in the morning. Return to the emergency department if you experience new, concerning, or worsening symptoms. Prescriptions: HYDROcodone/APAP 7.5-325MG [[place] 7.5-325] 1 tab PO Q4HR PRN 3 Days #18 tab PRN Reason: Pain Is patient prescribed a controlled substance at d/c from ED?: No Referrals: None,Stated [Primary Care Provider] - 1-2 days Brea Adam DO [Doctor of Osteopathic Medicine] - 1-2 days Time of Disposition: 18:07
== END 2022-02-11 18:22 | disposition home or self-care (01) ==
LOC: EC 16:57
DX: S62.632A Displaced fracture of distal phalanx of right middle finger, initial encounter for closed fracture (principal); J45.909 Unspecified asthma, uncomplicated; F41.9 Anxiety disorder, unspecified; F31.9 Bipolar disorder, unspecified; F17.200 Nicotine dependence, unspecified, uncomplicated; F12.90 Cannabis use, unspecified, uncomplicated; Z88.5 Allergy status to narcotic agent; W22.8XXA Striking against or struck by other objects, initial encounter
CPT/HCPCS: 99284